=== PATIENT | male | born 1955 | race Caucasian/White ===

== ENCOUNTER 2016-04-13 02:39 | Emergency (ER) | payer OTHER ==
[~2016-04-13] VITALS: Ht 190.5 cm; Wt 61.3 kg
[~2016-04-13 02:39] MED LIST: COUM5TAB PO; ENOX60P SQ; IRON18TA2 PO; PAXI10TA PO; RANI150 PO
[2016-04-13 02:45] VITALS: BP 97/67; PULSE 88; RESP 18; TEMP 99.2; O2SAT 97
[2016-04-13 02:54] VITALS: BP 97/67; PULSE 88; RESP 18; TEMP 99.2; O2SAT 97
[2016-04-13] MEDS ORDERED: WARF-22 PO (02:56)
--- NOTE | 2016-04-13 03:03 | PD ---
HPI Chief Complaint: Cold / Flu Symptoms Time Seen by Provider: 03:36 Travel History International Travel<30 days: No Contact w/Intl Traveler<30days: No Traveled to known affect area: No History of Present Illness HPI 60-year-old male presents to the emergency department by private transportation for 3 days of cough congestion yellow phlegm production anterior chest pain with cough and previous history of pulmonary embolism and is prescribed warfarin. Patient reports fever at home. No report of vomiting or diarrhea abdominal pain or referred pain. PFSH Past Medical History Narrative Medical Pulmonary embolism with Coumadin therapy high cholesterol hypertension COPD tobacco use pacemaker nursing notes reviewed Hx Anticoagulant Therapy: Yes Depression: Yes Heart Rhythm Problems: Yes Cancer: No Cardiac Catheterization: No Cardiovascular Problems: Yes High Cholesterol: Yes Congestive Heart Failure: No COPD: Yes Diabetes: No Diminished Hearing: No Endocrine: No GERD: Yes Genitourinary: No Hypertension: Yes Immune Disorder: No Insomnia: Yes Musculoskeletal: No Neurologic: No Psychiatric: Yes Reproductive: No Respiratory: Yes (HX PE'S) Immunizations Current: No Past Surgical History Cardiac Surgery: Yes (PM) Coronary Artery Bypass Graft: No Pacemaker: Yes Other Surgery: Yes (TESTICULAR CYST) Social History Alcohol Use: Yes (OCC) Tobacco Use: Yes (1PPD) Substance Use: Yes (ETOH AND DRUGS YEARS AGO) Allergies-Medications (Allergen,Severity, Reaction): Coded Allergies: Darvon (Verified Allergy, Severe, DOES NOT REMEMBER, 04/13/16) Reported Meds & Prescriptions Reported Meds & Active Scripts Active Reported Warfarin 10 Mg Tab 15 Mg PO DAILY Review of Systems Except as stated in HPI: all other systems reviewed are Neg General / Constitutional: No: Fever, Chills HENT: Positive: Congestion Cardiovascular: No: Chest Pain or Discomfort Respiratory: Positive: Cough Gastrointestinal: Positive: Nausea, No: Vomiting, Abdominal Pain Genitourinary: No: Flank Pain Musculoskeletal: No: Myalgias, Arthralgias Skin: No Rash Neurologic: No: Weakness Psychiatric: No: Anxiety Hematologic/Lymphatic: No: Lymph Node Enlargement Physical Exam Narrative GENERAL: Well-developed, well-nourished thin male in no acute distress no respiratory distress SKIN: Warm and dry. HEAD: Normocephalic. EYES: No scleral icterus. No injection or drainage. NECK: Supple, trachea midline. No JVD or lymphadenopathy. CARDIOVASCULAR: Regular rate and rhythm without murmurs, gallops, or rubs. RESPIRATORY: Breath sounds equal bilaterally few expiratory wheezes. No accessory muscle use. GASTROINTESTINAL: Abdomen soft, non-tender, nondistended. MUSCULOSKELETAL: No cyanosis, or edema. BACK: Nontender without obvious deformity. No CVA tenderness. Data Data Last Documented VS Vital Signs Date Time Temp Pulse Resp B/P Pulse Ox O2 Delivery O2 Flow Rate FiO2 04/13/16 05:44 98.8 65 18 107/68 97 Room Air Orders Complete Blood Count With Diff (04/13/16 03:03) Basic Metabolic Panel (Bmp) (04/13/16 03:03) B-Type Natriuretic Peptide (04/13/16 03:03) Prothrombin Time / Inr (Pt) (04/13/16 03:03) Magnesium (Mg) (04/13/16 03:03) Troponin I (04/13/16 03:03) Influenzae A/B Antigen (04/13/16 03:03) Iv Access Insert/Monitor (04/13/16 03:03) Electrocardiogram (04/13/16 03:03) Ecg Monitoring (04/13/16 03:03) Oximetry (04/13/16 03:03) Oxygen Administration (04/13/16 03:03) Chest, Single Ap (04/13/16 03:03) Sodium Chloride 0.9% Flush (Ns Flush) (04/13/16 03:15) Lactic Acid (04/13/16 03:03) Sodium Chlor 0.9% 1000 Ml Inj (Ns 1000 M (04/13/16 03:15) D-Dimer (04/13/16 03:20) Ct Pulmonary Angiogram (04/13/16 ) Sodium Chlor 0.9% 1000 Ml Inj (Ns 1000 M (04/13/16 04:15) Iohexol 350 Inj (Omnipaque 350 Inj) (04/13/16 05:03) Ceftriaxone Inj (Rocephin Inj) (04/13/16 05:45) Labs Laboratory Tests Test 04/13/16 03:20 White Blood Count 6.0 TH/MM3 Red Blood Count 4.37 MIL/MM3 Hemoglobin 13.0 GM/DL Hematocrit 39.5 % Mean Corpuscular Volume 90.2 FL Mean Corpuscular Hemoglobin 29.7 PG Mean Corpuscular Hemoglobin 32.9 % Concent Red Cell Distribution Width 13.9 % Platelet Count 276 TH/MM3 Mean Platelet Volume 9.2 FL Neutrophils (%) (Auto) 72.5 % Lymphocytes (%) (Auto) 13.6 % Monocytes (%) (Auto) 10.8 % Eosinophils (%) (Auto) 0.0 % Basophils (%) (Auto) 3.1 % Neutrophils # (Auto) 4.4 TH/MM3 Lymphocytes # (Auto) 0.8 TH/MM3 Monocytes # (Auto) 0.6 TH/MM3 Eosinophils # (Auto) 0.0 TH/MM3 Basophils # (Auto) 0.2 TH/MM3 CBC Comment DIFF FINAL Differential Comment Prothrombin Time 11.1 SEC Prothromb Time International 1.0 RATIO Ratio D-Dimer Quantitative (PE/DVT) 0.62 MG/L FEU Sodium Level 138 MEQ/L Potassium Level 3.7 MEQ/L Chloride Level 102 MEQ/L Carbon Dioxide Level 26.0 MEQ/L Anion Gap 10 MEQ/L Blood Urea Nitrogen 19 MG/DL Creatinine 0.92 MG/DL Estimat Glomerular Filtration 84 ML/MIN Rate Random Glucose 127 MG/DL Lactic Acid Level 1.0 mmol/L Calcium Level 7.8 MG/DL Magnesium Level 2.2 MG/DL Troponin I LESS THAN 0.02 NG/ML B-Type Natriuretic Peptide 19 PG/ML MDM Medical Decision Making Medical Screen Exam Complete: Yes Emergency Medical Condition: Yes Medical Record Reviewed: Yes (04/08/16 stress test with low risk probability) Interpretation(s) EKG atrial paced rhythm rate 65 RSR prime septally no acute ST elevation or injury pattern change noted influenza A ag: positive Troponin is less than 0.02, not elevated BNP is 19, not elevated Lactic acid is 1.0, not elevated; CBC & BMP Diagram 04/13/16 03:20 Last Impressions Chest X-Ray 04/13/16 0303 Signed Impressions: Service Date/Time: Wednesday, April 13, 2016 03:49 - CONCLUSION: Stable chest x-ray. No acute cardiopulmonary abnormality is identified. Matthew Guevara MD Pulmonary angiogram: CONCLUSION: 1. No PE is identified. 2. Stable 3 mm right middle lobe noncalcified pulmonary nodule. This has been present since June 2014. Consider attention to this at followup imaging. 3. Material is present within some of the segmental airways in the lower lobes bilaterally. This is not present no prior chest CT and therefore may represent aspirated material. Suggest followup imaging to confirm resolution. Matthew Guevara MD on April 13, 2016 at 5:22 Board Certified Radiologist. This report was verified electronically. Differential Diagnosis Cough, pleurisy, PE, pneumothorax, ACS, pneumonia, influenza, coagulopathy, anemia Narrative Course IV access obtained specimens collected and sent for resulting imaging studies ordered Patient identified to have a positive influenza A antigen test. Patient also identified to have subtherapeutic INR 1.0 and elevated d-dimer of 0.62. Patient will be sent for CT pulmonary angiogram. Additional IV fluids administered due to patient's blood pressure. Patient informed of lab results. Patient has passed the window of benefit of Tamiflu as symptoms began 3 days ago. Patient is identified to have area congestion on CT well administer Rocephin 1 g IV piggyback in the emergency department. Patient also given bronchodilator. Patient encouraged to have follow-up CT as an outpatient. Patient encouraged to follow-up with his primary care physician call office in a.m. to schedule follow-up appointment. Patient is aware that INR subtherapeutic. Patient has been tapering off his Coumadin in preparation for endoscopy on Saturday however in the interim is can't the procedure and did not resume his Coumadin therapy. Patient given one-time dose of Coumadin in the ED. Diagnosis Primary Impression: Influenza A Additional Impressions: History of pulmonary embolism Subtherapeutic anticoagulation Bronchitis Referrals: Primary Care Physician call for appointment [facility] 1 day Patient Instructions: General Instructions Additional Instructions: Increase fluid hydration take Coumadin as prescribed Monitor temperature every 4 hours with thermometer and take acetaminophen/ Tylenol every 4 as her fever 100.4 days Fahrenheit or greater Complete course of antibiotic as prescribed Use inhaler to help with wheezing shortness of breath or coughing Use cough medicine as prescribed as needed for cough suppression--recommend use at bedtime to help with sleep Follow-up with primary care provider call [facility] to schedule follow-up appointment; also for scheduling follow-up CT Return to the emergency department for any concerns or change in condition Med/Other Pt SpecificInfo: Prescription(s) given Scripts Guaifenesin-Codeine (Codeine/Guaifenesin 100-10 mg/5Ml)1 [place] Sol5-10 Ml PO Q6HR PRN (COUGH) #120 ML Prov:Manasa Jain MD 04/13/16 Cephalexin (Keflex)500 Mg Oqg703 Mg PO Q6H 7 Days Ref 0 Prov:Manasa Jain MD 04/13/16 Albuterol 6.7 GM Inh (Proventil Hfa 6.7 GM Inh)90 Mcg/Act Aer2 Puff INH Q4-6H PRN (SHORTNESS OF BREATH) #1 INHALER Ref 0 Prov:Manasa Jain MD 04/13/16 Disposition: 01 DISCHARGE HOME Condition: Stable Manasa Jain MD Apr 13, 2016 03:03
[2016-04-13 03:09] VITALS: RESP 18; O2SAT 97
[2016-04-13] MEDS ORDERED: SODIUM CHLOR 0.9% 1000 ML INJ 1,000 ML IV ONE ×2 (03:15→04:15)
[2016-04-13] MEDS ORDERED: SODIUM CHLORIDE 0.9% FLUSH 5 ML FLUSH IVF PRN (03:15)
[2016-04-13 03:30] VITALS: BP 101/70; PULSE 65; RESP 18; O2SAT 97
[2016-04-13 03:32] LABS: AUTOMATED NEUTROPHIL # 4.4 TH/MM3 (1.8-7.7); BASOPHIL # 0.2 TH/MM3 (0-0.2); BASOPHIL % 3.1 % (0.0-2.0); HEMATOCRIT 39.5 % (39.0-51.0); HEMO FLAGS DIFF FINAL; LYMPH % 13.6 % (9.0-44.0); LYMPHOCYTE # 0.8 TH/MM3 (1.0-4.8); MEAN CELL VOLUME 90.2 FL (80.0-100.0); MEAN CORPUSCULAR HEMOGLOBIN 29.7 PG (27.0-34.0); MEAN CORPUSCULAR HGB CONC 32.9 % (32.0-36.0); MONO % 10.8 % (0.0-8.0); NEUT % 72.5 % (16.0-70.0); PLATELET COUNT 276 TH/MM3 (150-450); RED BLOOD COUNT 4.37 MIL/MM3 (4.50-5.90); RED CELL DISTRIBUTION WIDTH 13.9 % (11.6-17.2)
[2016-04-13 03:44] LABS: CHLORIDE 102 MEQ/L (98-107); POTASSIUM 3.7 MEQ/L (3.5-5.1); SODIUM (NA) 138 MEQ/L (136-145)
[2016-04-13 03:47] LABS: ANION GAP 10 MEQ/L (5-15); BLOOD UREA NITROGEN 19 MG/DL (7-18); MAGNESIUM 2.2 MG/DL (1.5-2.5); PROTHROMBIN TIME - PATIENT 11.1 SEC (9.8-11.6)
[2016-04-13 03:50] LABS: GLOMERULAR FILTRATION RATE 84 ML/MIN (>89)
[2016-04-13 04:13] VITALS: BP 109/68; PULSE 62; RESP 18; O2SAT 97
--- NOTE | 2016-04-13 04:29 | RADHPO ---
EXAM DATE/TIME: 04/13/2016 03:49 [facility] COMPARISON: CHEST SINGLE AP, October 19, 2014, 10:00. INDICATIONS : Patient states fever and cough. MEDICAL HISTORY : None. SURGICAL HISTORY : Pacemaker. ENCOUNTER: Initial ACUITY: 3 days PAIN SCORE: 3/10 LOCATION: Bilateral chest FINDINGS: Portable AP views of the chest demonstrate a normal-sized cardiac silhouette. Left chest wall cardiac pacing device remains present. EKG lines overlie the patient. No effusion, consolidation, or pneumot horax is visualized. The bones and soft tissues demonstrate no acute finding. CONCLUSION: Stable chest x-ray. No acute cardiopulmonary abnormality is identified. Matthew Guevara MD on April 13, 2016 at 4:27 Board Certified Radiologist. This report was verified electronically.
[2016-04-13] MEDS ORDERED: IOHEXOL 350 MG/ML 10 ML VIAL (for RAD DIAG) IV ONE (05:03)
--- NOTE | 2016-04-13 05:31 | RADHPO ---
EXAM DATE/TIME: 04/13/2016 04:39 [facility] COMPARISON: CT ABDOMEN & PELVIS W CONTRAST, August 06, 2014, 18:35. CT PULMONARY ANGIOGRAM, April 07, 2015, 11:35 . INDICATIONS : Chest congestion, pain and cough for three days. IV CONTRAST: 75 cc Omnipaque 350 (iohexol) IV RADIATION DOSE: 6.31 CTDIvol (mGy) MEDICAL HISTORY : Chronic obstructive pulmonary disease. Hypertension. SURGICAL HISTORY : Pacemaker. ENCOUNTER: Initial ACUITY: 3 days PAIN SCALE: 3/10 LOCATION: Bilateral chest TECHNIQUE: Volumetric scanning of the chest was performed using a pulmonary embolism protocol MIP images were re constructed. Using automated exposure control and adjustment of the mA and/or kV according to patien t size, radiation dose was kept as low as reasonably achievable to obtain optimal diagnostic quality images. FINDINGS: PULMONARY ARTERIES: No filling defects are seen in the pulmonary arteries through the segmental level. LUNGS: There is no consolidation or pneumothorax . The right middle lobe abutting the major fissure there is a 3 mm noncalcified pulmonary nodule. Material is present in one of the right lower lobe segmental a irways and some material is also present within the left lower lobe segmental airways. PLEURAE: There is no pleural thickening or pleural effusion. MEDIASTINUM: There is good visualization of the great vessels of the middle mediastinum. No evidence of mediastin al or hilar adenopathy/mass. There is reflux of contrast into the IVC and azygos system. MUSCULOSKELETAL: No acute abnormality is seen. MISCELLANEOUS: The visualized upper abdominal organs demonstrate no acute abnormality. CONCLUSION: 1. No PE is identified. 2. Stable 3 mm right middle lobe noncalcified pulmonary nodule. This has been present since June 5. Consider attention to this at followup imaging. 3. Material is present within some of the segmental airways in the lower lobes bilaterally. This is n ot present no prior chest CT and therefore may represent aspirated material. Suggest followup imaging to confirm resolution. Matthew Guevara MD on April 13, 2016 at 5:22 Board Certified Radiologist. This report was verified electronically.
[2016-04-13 05:44] VITALS: BP 107/68; PULSE 65; RESP 18; TEMP 98.8; O2SAT 97
[2016-04-13] MEDS ORDERED: cefTRIAXone INJ 1,000 MG in SODIUM CHLORIDE 0.9% INJ 100 ML IV ONE (05:45)
[2016-04-13] MEDS ORDERED: CEPH-460 PO (05:49)
[2016-04-13] MEDS ORDERED: GUAI1SOL3 PO (05:49)
[2016-04-13] MEDS ORDERED: ALBU6.7H INH (05:49)
--- NOTE | 2016-04-13 13:28 | EKG ---
Date Performed: 04/13/2016 Time Performed: 03:11:24 PTAGE: 60 years EKG: Demand atrial pacing rSr'(V1) - probable normal variant Septal T wave changes are nonspecif ic Since previous tracing, no significant change noted Abnormal ECG PREVIOUS TRACING : 04/07/2015 22.21.02 DOCTOR: Ela Stephens Interpretating Date/Time 04/13/2016 13:27:31
== END 2016-04-13 06:12 | disposition home or self-care (01) ==
LOC: PHED 02:39
DX: J09.X2 Influenza due to identified novel influenza A virus with other respiratory manifestations (principal); R07.9 Chest pain, unspecified; R05 Cough; R50.9 Fever, unspecified; R79.1 Abnormal coagulation profile; R94.31 Abnormal electrocardiogram [ECG] [EKG]; J44.9 Chronic obstructive pulmonary disease, unspecified; E78.00 Pure hypercholesterolemia, unspecified; I10 Essential (primary) hypertension; K21.9 Gastro-esophageal reflux disease without esophagitis; F17.210 Nicotine dependence, cigarettes, uncomplicated; Z86.711 Personal history of pulmonary embolism; Z79.01 Long term (current) use of anticoagulants; Z95.0 Presence of cardiac pacemaker
CPT/HCPCS: 71010; 71275; 80048; 83605; 83735; 83880; 84484; 85025; 85379; 85610; 87804; 93005; 96361; 96365; 99284; J0696; J7030; Q9967

== ENCOUNTER 2017-02-01 13:00 | Emergency (ER) | payer OTHER ==
[~2017-02-01] VITALS: Ht 190.5 cm; Wt 60.0 kg
[~2017-02-01 13:00] MED LIST changes: +ALBU6.7H INH; +CEPH-460 PO; -COUM5TAB PO; -ENOX60P SQ; +GUAI1SOL3 PO; -IRON18TA2 PO; -PAXI10TA PO; -RANI150 PO; +WARF-22 PO
[2017-02-01 13:04] VITALS: BP 119/87; PULSE 61; RESP 16; TEMP 97.4; O2SAT 98
[2017-02-01 13:10] VITALS: BP_SYST 117; BP_SYST 118; BP_DIAS 68; BP_DIAS 70
[2017-02-01 13:12] VITALS: RESP 16; O2SAT 97
[2017-02-01] MEDS ORDERED: SODIUM CHLORIDE 0.9% FLUSH 10 ML FLUSH IVF PRN (13:30)
--- NOTE | 2017-02-01 13:36 | RADRPT ---
EXAM DATE/TIME: 02/01/2017 13:19 CORRECTION Corrected on: February 07, 2017; fixed date and time [facility] COMPARISON: CHEST SINGLE AP, April 13, 2016, 3:49. INDICATIONS : Short of breath MEDICAL HISTORY : Chronic obstructive pulmonary disease. Hypertension SURGICAL HISTORY : Pacemaker. ENCOUNTER: Initial ACUITY: 4 - 6 days PAIN SCORE: 0/10 LOCATION: chest FINDINGS: Lungs are hyperexpanded. There is a 1.3 cm focal opacity in the inferior right lower lung zone which may reflect confluence of shadows. Dual lead pacemaker in stable position. Cardiomediastinal contours are within normal limits. The remainder of the exam is unchanged. CONCLUSION: 1. Changes of obstructive pulmonary disease with 1.3 cm focal opacity in the inferior right lower joel g zone which may reflect confluence of shadows although a pulmonary nodule cannot be excluded. This c an be further evaluated on already requested pulmonary CT exam. Micheal Weaver MD on February 01, 2017 at 13:32 Board Certified Radiologist. Board Certified Radiologist. This report was verified electronically.
[2017-02-01 13:39] LABS: AUTOMATED NEUTROPHIL # 2.5 TH/MM3 (1.8-7.7); BASOPHIL % 0.9 % (0.0-2.0); EOSINOPHIL # 0.4 TH/MM3 (0-0.4); EOSINOPHIL % 8.2 % (0.0-4.0); HEMATOCRIT 45.3 % (39.0-51.0); HEMO FLAGS DIFF FINAL; LYMPH % 30.2 % (9.0-44.0); LYMPHOCYTE # 1.5 TH/MM3 (1.0-4.8); MEAN CELL VOLUME 92.6 FL (80.0-100.0); MEAN CORPUSCULAR HEMOGLOBIN 30.1 PG (27.0-34.0); MEAN CORPUSCULAR HGB CONC 32.5 % (32.0-36.0); MONO % 8.5 % (0.0-8.0); NEUT % 52.2 % (16.0-70.0); PLATELET COUNT 275 TH/MM3 (150-450); RED BLOOD COUNT 4.89 MIL/MM3 (4.50-5.90); RED CELL DISTRIBUTION WIDTH 13.2 % (11.6-17.2); WHITE BLOOD COUNT 4.9 TH/MM3 (4.0-11.0)
--- NOTE | 2017-02-01 13:44 | PD ---
HPI Chief Complaint: Chest Pain Time Seen by Provider: 13:07 Travel History International Travel<30 days: No Contact w/Intl Traveler<30days: No Traveled to known affect area: No History of Present Illness HPI This is a 61-year-old male who reports that he's been feeling very weak over the past 3 weeks, constant, severe, with poor exertional tolerance. He denies any shortness of breath or chest pain and denies any fevers or chills. He has had some cough and rhinorrhea. He has a difficult time describing his symptoms but he says he just doesn't feel himself. PFSH Past Medical History Hx Anticoagulant Therapy: Yes Depression: Yes Heart Rhythm Problems: Yes Cancer: No Cardiac Catheterization: No Cardiovascular Problems: Yes High Cholesterol: Yes Chemotherapy: No Congestive Heart Failure: No COPD: Yes Cerebrovascular Accident: No Diabetes: No Diminished Hearing: No Endocrine: No Gastrointestinal Disorders: Yes GERD: Yes Genitourinary: No Heparin Induced Thrombocytopen: No Hypertension: Yes Immune Disorder: No Implanted Vascular Access Dvce: Yes Insomnia: Yes Musculoskeletal: No Neurologic: No Psychiatric: Yes Reproductive: No Respiratory: No Immunizations Current: No Tetanus Vaccination: Unknown Influenza Vaccination: No Past Surgical History Cardiac Surgery: Yes (PACEMAKER) Coronary Artery Bypass Graft: No Hysterectomy: No Pacemaker: Yes Other Surgery: Yes (TESTICULAR CYST) Social History Alcohol Use: Yes (3-4 BEERS DAILY) Tobacco Use: Yes (1PPD) Substance Use: Yes (ETOH AND DRUGS YEARS AGO) Allergies-Medications (Allergen,Severity, Reaction): Coded Allergies: propoxyphene (Unverified Allergy, Severe, DOES NOT REMEMBER, 02/01/17) Reported Meds & Prescriptions Reported Meds & Active Scripts Active Reported Warfarin 10 Mg Tab 15 Mg PO DAILY Review of Systems Except as stated in HPI: all other systems reviewed are Neg Physical Exam Narrative GENERAL: Cachectic appearing SKIN: Focused skin assessment warm and dry. HEAD: Atraumatic. Normocephalic. EYES: Pupils equal and round. No injection or drainage. ENT: Moist mucous membranes NECK: Trachea midline. CARDIOVASCULAR: Regular rate and rhythm. No murmur appreciated. RESPIRATORY: Clear to auscultation. Breath sounds equal bilaterally. GASTROINTESTINAL: Abdomen soft, non-tender, nondistended. MUSCULOSKELETAL: No obvious deformities. NEUROLOGICAL: Awake and alert. No obvious cranial nerve deficits. Moving all extremities. PSYCHIATRIC: Appropriate mood and affect; insight and judgment normal. Data Data Last Documented VS Vital Signs Date Time Temp Pulse Resp B/P (MAP) Pulse Ox O2 Delivery O2 Flow Rate FiO2 02/01/17 14:57 62 16 116/69 (85) 98 Room Air 02/01/17 13:04 97.4 Orders Orders Electrocardiogram (02/01/17 13:18) Complete Blood Count With Diff (02/01/17 13:18) Comprehensive Metabolic Panel (02/01/17 13:18) Magnesium (Mg) (02/01/17 13:18) Prothrombin Time / Inr (Pt) (02/01/17 13:18) Act Partial Throm Time (Ptt) (02/01/17 13:18) Troponin I (02/01/17 13:18) Chest, Single Ap (02/01/17 13:18) Ecg Monitoring (02/01/17 13:18) Bilateral Bp Monitoring (02/01/17 13:18) Iv Access Insert/Monitor (02/01/17 13:18) Oximetry (02/01/17 13:18) Oxygen Administration (02/01/17 13:18) Sodium Chloride 0.9% Flush (Ns Flush) (02/01/17 13:30) Ct Pulmonary Angiogram (02/01/17 13:18) Ct Abd/Pel W Iv Contrast(Rout) (02/01/17 ) Iohexol 350 Inj (Omnipaque 350 Inj) (02/01/17 14:18) Troponin I (02/01/17 15:30) Labs Laboratory Tests Test 02/01/17 13:30 02/01/17 15:45 White Blood Count 4.9 TH/MM3 Red Blood Count 4.89 MIL/MM3 Hemoglobin 14.7 GM/DL Hematocrit 45.3 % Mean Corpuscular Volume 92.6 FL Mean Corpuscular Hemoglobin 30.1 PG Mean Corpuscular Hemoglobin Concent 32.5 % Red Cell Distribution Width 13.2 % Platelet Count 275 TH/MM3 Mean Platelet Volume 10.2 FL Neutrophils (%) (Auto) 52.2 % Lymphocytes (%) (Auto) 30.2 % Monocytes (%) (Auto) 8.5 % Eosinophils (%) (Auto) 8.2 % Basophils (%) (Auto) 0.9 % Neutrophils # (Auto) 2.5 TH/MM3 Lymphocytes # (Auto) 1.5 TH/MM3 Monocytes # (Auto) 0.4 TH/MM3 Eosinophils # (Auto) 0.4 TH/MM3 Basophils # (Auto) 0.0 TH/MM3 CBC Comment DIFF FINAL Differential Comment Prothrombin Time 10.7 SEC Prothromb Time International Ratio 1.0 RATIO Activated Partial Thromboplast Time 27.0 SEC Blood Urea Nitrogen 19 MG/DL Creatinine 1.10 MG/DL Random Glucose 125 MG/DL Total Protein 7.9 GM/DL Albumin 4.1 GM/DL Calcium Level 8.7 MG/DL Magnesium Level 2.3 MG/DL Alkaline Phosphatase 67 U/L Aspartate Amino Transf (AST/SGOT) 16 U/L Alanine Aminotransferase (ALT/SGPT) 21 U/L Total Bilirubin 0.5 MG/DL Sodium Level 138 MEQ/L Potassium Level 3.9 MEQ/L Chloride Level 102 MEQ/L Carbon Dioxide Level 31.0 MEQ/L Anion Gap 5 MEQ/L Estimat Glomerular Filtration Rate 68 ML/MIN Troponin I LESS THAN 0.02 NG/ML LESS THAN 0.02 NG/ML MDM Medical Decision Making Medical Screen Exam Complete: Yes Emergency Medical Condition: Yes Interpretation(s) No leukocytosis Electrolytes are reassuring Last 24 hours Impressions Chest X-Ray 02/01/178 Signed Impressions: Service Date/Time: Thursday, February 02, 2017 01:24 - CONCLUSION: 1. Changes of obstructive pulmonary disease with 1.3 cm focal opacity in the inferior right lower lung zone which may reflect confluence of shadows although a pulmonary nodule cannot be excluded. This can be further evaluated on already requested pulmonary CT exam. Micheal Weaver MD CT Angiography 02/01/178 Signed Impressions: Service Date/Time: Wednesday, February 01, 2017 14:02 - CONCLUSION: Again scarring in the right hilum with marked decreased size of the right upper lobe pulmonary artery. I do not believe it is a pulmonary embolism and it is stable since April 2016. Alexander Parisi MD Abdomen/Pelvis CT 02/01/17 0000 Signed Impressions: Service Date/Time: Wednesday, February 01, 2017 14:02 - CONCLUSION: Stable exam since 2014. No etiology for abdominal pain is identified. Alexander Parisi MD Differential Diagnosis Pulmonary embolism, malignancy, pleural effusion Narrative Course This is a 61-year-old male who presents to the emergency department reporting generalized weakness and malaise with some chest discomfort. He is a poor historian. He is very thin on exam with a BMI of 16. He was placed on a monitor and an obviously was established. Labs are obtained which are all reassuring. He has a history of pulmonary embolisms so CT pulmonary angiogram was obtained which was negative. CT abdomen and pelvis was also obtained given the patient's appearance for concern for underlying malignancy which was normal. I think patient requires close follow-up with a primary care physician is I suspect his condition is acute on chronic. Patient will be discharged home. Troponin was repeated and was negative. His chest pain is very atypical and does not seem to be his chief complaint. He had a stress test in March of last year which was normal. Diagnosis Primary Impression: Weakness Patient Instructions: General Instructions Additional Instructions: If you develop severe chest pain, shortness of breath, sweating, lightheadedness , dizziness or difficulty breathing return to the emergency department immediately. Followup with your primary care physician in 2-3 days if your symptoms are not resolved. Med/Other Pt SpecificInfo: No Change to Meds Disposition: 01 DISCHARGE HOME Condition: Stable Lilo Jain MD Feb 01, 2017 13:44
[2017-02-01 13:46] LABS: CHLORIDE 102 MEQ/L (98-107); POTASSIUM 3.9 MEQ/L (3.5-5.1); SODIUM (NA) 138 MEQ/L (136-145)
[2017-02-01 13:50] LABS: ANION GAP 5 MEQ/L (5-15); BLOOD UREA NITROGEN 19 MG/DL (7-18); MAGNESIUM 2.3 MG/DL (1.5-2.5)
[2017-02-01 13:53] LABS: ALT (GPT) 21 U/L (12-78); AST (GOT) 16 U/L (15-37); GLOMERULAR FILTRATION RATE 68 ML/MIN (>89)
[2017-02-01 13:54] LABS: TOTAL BILIRUBIN ADULT 0.5 MG/DL (0.2-1.0)
[2017-02-01 13:56] LABS: ALKALINE PHOSPHATASE 67 U/L (45-117)
[2017-02-01] MEDS ORDERED: IOHEXOL 350 MG/ML 10 ML VIAL (for RAD DIAG) IVCONTRAST ONE (14:18)
[2017-02-01 14:22] LABS: PROTHROMBIN TIME - PATIENT 10.7 SEC (9.8-11.6)
--- NOTE | 2017-02-01 14:38 | RADRPT ---
EXAM DATE/TIME: 02/01/2017 14:02 [facility] COMPARISON: CT ABDOMEN & PELVIS W CONTRAST, August 06, 2014, 18:35. INDICATIONS : General weakness x 3 weeks, evaluate for tumor. IV CONTRAST: 85 cc Omnipaque 350 (iohexol) IV ; Cumulative dose for multiple exams. ORAL CONTRAST: No oral contrast ingested. RADIATION DOSE: 7.00 CTDIvol (mGy) MEDICAL HISTORY : Chronic obstructive pulmonary disease. Cardiovascular disease Gastroesophageal reflux disease.Hyperte nsion. SURGICAL HISTORY : Pacemaker. ENCOUNTER: Initial ACUITY: 3 weeks PAIN SCALE: 0/10 LOCATION: Abdomen. TECHNIQUE: Volumetric scanning of the abdomen and pelvis was performed. Using automated exposure control and ad justment of the mA and/or kV according to patient size, radiation dose was kept as low as reasonably achievable to obtain optimal diagnostic quality images. DICOM format image data is available electro nically for review and comparison. FINDINGS: LOWER LUNGS: The visualized lower lungs are clear. LIVER: Homogeneous density without lesion. There is no dilation of the biliary tree. No calcified gallston es. SPLEEN: Normal size without lesion. PANCREAS: Within normal limits. KIDNEYS: Normal in size and shape. There is no mass, stone or hydronephrosis other than small cyst upper pole right kidney. Prominent renal veins on the left side unchanged. ADRENAL GLANDS: Within normal limits. VASCULAR: There is no aortic aneurysm. BOWEL/MESENTERY: The stomach, small bowel, and colon demonstrate no acute abnormality. There is no free intraperitone al air or fluid. ABDOMINAL WALL: Within normal limits. RETROPERITONEUM: There is no lymphadenopathy. IVC remains markedly enlarged BLADDER: No wall thickening or mass. REPRODUCTIVE: Within normal limits. INGUINAL: There is no lymphadenopathy or hernia. MUSCULOSKELETAL: Within normal limits for patient age. CONCLUSION: Stable exam since 2014. No etiology for abdominal pain is identified. Alexander Parisi MD on February 01, 2017 at 14:35 Board Certified Radiologist. This report was verified electronically.
--- NOTE | 2017-02-01 14:48 | RADRPT ---
EXAM DATE/TIME: 02/01/2017 14:02 [facility] COMPARISON: Prior study April 2016. INDICATIONS : Chest pain. IV CONTRAST: 85 cc Omnipaque 350 (iohexol) IV ; Cumulative dose for multiple exams. RADIATION DOSE: 6.27 CTDIvol (mGy) MEDICAL HISTORY : Cardiovascular disease. Chronic obstructive pulmonary disease. Gastroesophageal reflux disease. Hyper tension. SURGICAL HISTORY : Pacemaker. ENCOUNTER: Initial ACUITY: 3 weeks PAIN SCALE: 1/10 LOCATION: Chest TECHNIQUE: Volumetric scanning of the chest was performed using a pulmonary embolism protocol MIP images were re constructed. Using automated exposure control and adjustment of the mA and/or kV according to patien t size, radiation dose was kept as low as reasonably achievable to obtain optimal diagnostic quality images. DICOM format image data is available electronically for review and comparison. Follow-up recommendations for detected pulmonary nodules are based at a minimum on nodule size and pa tient risk factors according to Fleischner Society Guidelines. FINDINGS: CT of the chest was performed. Similar to April 2016 the right upper lobe pulmonary artery is quit e small with some scarring in the right hilum. It is stable from the previous study. No new mass is identified. The left pulmonary artery is unremarkable. There is excellent opacification of the low er pulmonary arteries without evidence of pulmonary embolism. There is a tiny cavity in the right up per lobe measuring 4 mm. No infiltrate or mass is identified. There was some soft tissue obstructio n in the right lower lobe bronchus which has cleared since April. CONCLUSION: Again scarring in the right hilum with marked decreased size of the right upper lobe pulmonary artery . I do not believe it is a pulmonary embolism and it is stable since April 2016. Alexander Parisi MD on February 01, 2017 at 14:27 Board Certified Radiologist. This report was verified electronically.
[2017-02-01 14:57] VITALS: BP 116/69; PULSE 62; RESP 16; O2SAT 98
[2017-02-01 16:30] VITALS: BP 122/81; PULSE 60; RESP 16; O2SAT 93
--- NOTE | 2017-02-02 17:57 | EKG ---
Date Performed: 02/01/2017 Time Performed: 13:05:15 PTAGE: 61 years EKG: ELECTRONIC ATRIAL PACEMAKER, OCCASIONAL VENTRICULAR PACEMAKER POSSIBLE RIGHT VENTRICULAR CO NDUCTION DELAY VOLTAGE CRITERIA FOR LVH ABNORMAL ECG INTERPRETATION BASED ON A DEFAULT AGE OF 39 YEAR S Compared to the PREVIOUS TRACING from 04/13/16, now atrial paced DOCTOR: Madi Cassidy Interpretating Date/Time 02/02/2017 17:55:46
== END 2017-02-01 16:34 | disposition home or self-care (01) ==
LOC: PHED 13:00
DX: R53.1 Weakness (principal); F17.200 Nicotine dependence, unspecified, uncomplicated; R94.31 Abnormal electrocardiogram [ECG] [EKG]
CPT/HCPCS: 71010; 71275; 74177; 80053; 83735; 84484; 85025; 85610; 85730; 93005; 99285; Q9967

== ENCOUNTER 2017-02-22 11:22 | Emergency (ER) | payer OTHER ==
[~2017-02-22] VITALS: Ht 190.5 cm; Wt 57.4 kg
[~2017-02-22 11:22] MED LIST changes: -ALBU6.7H INH; -CEPH-460 PO; -GUAI1SOL3 PO
[2017-02-22 11:50] VITALS: BP 103/60; PULSE 62; RESP 18; TEMP 97.4; O2SAT 99
--- NOTE | 2017-02-22 12:42 | PD ---
HPI Chief Complaint: General Weakness Time Seen by Provider: 12:17 Travel History International Travel<30 days: No Contact w/Intl Traveler<30days: No Traveled to known affect area: No History of Present Illness HPI 61yo M with PMH of PE, bradycardia s/p pacemaker placement presents to the ED with c/o generalized weakness for 1 month. States he has no energy and he is sleeping a lot. States he lives by himself and his family is in [place]. Upon review of system, said he has been having a little chest pain and sob for a few weeks. Pt was seen here on 02/01/17 for similar complaints and was suppose to follow up for colonoscopy but said he has not followed up. Also had black stool 2 days ago. [facility] Denies any fever, n/v, abdominal pain, focal weakness or numbness. PFSH Past Medical History Hx Anticoagulant Therapy: Yes Depression: Yes Heart Rhythm Problems: Yes Cancer: No Cardiac Catheterization: No Cardiovascular Problems: Yes High Cholesterol: Yes Chemotherapy: No Congestive Heart Failure: No COPD: Yes Cerebrovascular Accident: No Diabetes: No Diminished Hearing: No Endocrine: No Gastrointestinal Disorders: Yes GERD: Yes Genitourinary: No Heparin Induced Thrombocytopen: No Hypertension: Yes Immune Disorder: No Implanted Vascular Access Dvce: Yes Insomnia: Yes Musculoskeletal: No Neurologic: No Psychiatric: Yes Reproductive: No Respiratory: No Immunizations Current: No Tetanus Vaccination: < 5 Years Past Surgical History Cardiac Surgery: Yes (PACEMAKER) Coronary Artery Bypass Graft: No Hysterectomy: No Pacemaker: Yes Other Surgery: Yes (TESTICULAR CYST) Family History Family Myocardial Infarction: No Social History Alcohol Use: Yes (3-4 BEERS DAILY) Tobacco Use: Yes (1PPD) Substance Use: Yes (ETOH AND DRUGS YEARS AGO) Allergies-Medications (Allergen,Severity, Reaction): Coded Allergies: propoxyphene (Unverified Allergy, Severe, DOES NOT REMEMBER, 02/22/17) Reported Meds & Prescriptions Reported Meds & Active Scripts Active Reported Warfarin 10 Mg Tab 15 Mg PO DAILY Review of Systems Except as stated in HPI: all other systems reviewed are Neg Physical Exam Narrative GENERAL: 61yo cachetic appearing. SKIN: Focused skin assessment warm/dry. HEAD: Atraumatic. Normocephalic. EYES: Pupils equal and round. No scleral icterus. No injection or drainage. ENT: No nasal bleeding or discharge. Mucous membranes pink and moist. NECK: Trachea midline. No JVD. CARDIOVASCULAR: Regular rate and rhythm. No murmur appreciated. RESPIRATORY: No accessory muscle use. Clear to auscultation. Breath sounds equal bilaterally. GASTROINTESTINAL: Abdomen soft, non-tender, nondistended. Hepatic and splenic margins not palpable. RECTAL: No blood. Brown stool. Hemaprompt negative. MUSCULOSKELETAL: No obvious deformities. No clubbing. No cyanosis. No edema. NEUROLOGICAL: Awake and alert. No obvious cranial nerve deficits. Motor grossly within normal limits. Normal speech. PSYCHIATRIC: Appropriate mood and affect; insight and judgment normal. Data Data Last Documented VS Vital Signs Date Time Temp Pulse Resp B/P (MAP) Pulse Ox O2 Delivery O2 Flow Rate FiO2 02/22/17:17 02/22/17 14:28 62 18 97 Room Air 02/22/17 11:50 97.4 Orders Orders Electrocardiogram (02/22/17 ) Complete Blood Count With Diff (02/22/17 12:36) Comprehensive Metabolic Panel (02/22/17 12:36) Prothrombin Time / Inr (Pt) (02/22/17 12:36) Act Partial Throm Time (Ptt) (02/22/17 12:36) Troponin I (02/22/17 12:36) Urinalysis - C+S If Indicated (02/22/17 12:36) Thyroid Stimulating Hormone (02/22/17 12:36) Chest, Single Ap (02/22/17 ) Sodium Chlor 0.9% 1000 Ml Inj (Ns 1000 M (02/22/17 14:15) Ed Discharge Order (02/22/17 15:14) Labs Laboratory Tests Test 02/22/17 12:42 02/22/17 14:22 White Blood Count 3.2 TH/MM3 Red Blood Count 4.39 MIL/MM3 Hemoglobin 13.4 GM/DL Hematocrit 40.5 % Mean Corpuscular Volume 92.3 FL Mean Corpuscular Hemoglobin 30.6 PG Mean Corpuscular Hemoglobin Concent 33.1 % Red Cell Distribution Width 13.3 % Platelet Count 254 TH/MM3 Mean Platelet Volume 9.6 FL Neutrophils (%) (Auto) 55.0 % Lymphocytes (%) (Auto) 34.0 % Monocytes (%) (Auto) 7.4 % Eosinophils (%) (Auto) 1.2 % Basophils (%) (Auto) 2.4 % Neutrophils # (Auto) 1.8 TH/MM3 Lymphocytes # (Auto) 1.1 TH/MM3 Monocytes # (Auto) 0.2 TH/MM3 Eosinophils # (Auto) 0.0 TH/MM3 Basophils # (Auto) 0.1 TH/MM3 CBC Comment DIFF FINAL Differential Comment Prothrombin Time 10.4 SEC Prothromb Time International Ratio 1.0 RATIO Activated Partial Thromboplast Time 25.4 SEC Blood Urea Nitrogen 28 MG/DL Creatinine 1.10 MG/DL Random Glucose 75 MG/DL Total Protein 7.0 GM/DL Albumin 3.5 GM/DL Calcium Level 8.2 MG/DL Alkaline Phosphatase 63 U/L Aspartate Amino Transf (AST/SGOT) 16 U/L Alanine Aminotransferase (ALT/SGPT) 19 U/L Total Bilirubin 0.3 MG/DL Sodium Level 138 MEQ/L Potassium Level 3.8 MEQ/L Chloride Level 102 MEQ/L Carbon Dioxide Level 29.7 MEQ/L Anion Gap 6 MEQ/L Estimat Glomerular Filtration Rate 68 ML/MIN Troponin I LESS THAN 0.02 NG/ML Thyroid Stimulating Hormone 3rd Gen 1.060 uIU/ML Urine Color YELLOW Urine Turbidity CLEAR Urine pH 6.0 Urine Specific Berkley 1.022 Urine Protein TRACE mg/dL Urine Glucose (UA) NEG mg/dL Urine Ketones NEG mg/dL Urine Occult Blood TRACE Urine Nitrite NEG Urine Bilirubin NEG Urine Leukocyte Esterase NEG Urine RBC 0-3 /hpf Urine Squamous Epithelial Cells 0-5 /hpf Urine Bacteria RARE /hpf Microscopic Urinalysis Comment CULT NOT INDICATED MDM Medical Decision Making Medical Screen Exam Complete: Yes Emergency Medical Condition: Yes Interpretation(s) EKG: atrial paced. Normal axis. No ST segment elevation or depression. Differential Diagnosis Dehydration vs. electrolyte abnormality vs. failure to thrive vs. malignancy vs. atypical chest pain Narrative Course 61yo M with multiple vague complaints. When asked if wants a higher level of care, he said he does not. I asked the social media manager to be involved and she spoke to his children and they said he does not want to join them in [place]. Pt said he can take care of himself and can ambulate. He is very thin and may have colon CA but needs to follow up with GI as outpatient. Hemaprompt negative here. Labs reviewed, H/H normal. BUN mildly elevated at 28, pt given NS IVF. Troponin negative, chest pain is atypical. TSH normal. UA negative. CXR unremarkable. Pt wants to go home. Instructed him to follow up with GI as outpatient and return to the ED if symptoms worsen. [facility] Point of Care Internal Pos. & Neg. Controls: Passed Fecal Specimen Occult Blood: Negative Diagnosis Primary Impression: Dehydration Referrals: Phil Encarnacion MD call for appointment Patient Instructions: General Instructions Departure Forms: Tests/Procedures Additional Instructions: Please follow up with GI for colonoscopy. Please follow up with your primary care physician in 2-3 days. Return to the ED if symptoms worsen. Med/Other Pt SpecificInfo: No Change to Meds Disposition: 01 DISCHARGE HOME Condition: Stable Inna Vasquez DO Feb 22, 2017 12:41
[2017-02-22 12:48] LABS: AUTOMATED NEUTROPHIL # 1.8 TH/MM3 (1.8-7.7); BASOPHIL # 0.1 TH/MM3 (0-0.2); BASOPHIL % 2.4 % (0.0-2.0); EOSINOPHIL % 1.2 % (0.0-4.0); HEMATOCRIT 40.5 % (39.0-51.0); HEMOGLOBIN 13.4 GM/DL (13.0-17.0); LYMPHOCYTE # 1.1 TH/MM3 (1.0-4.8); MEAN CELL VOLUME 92.3 FL (80.0-100.0); MEAN CORPUSCULAR HEMOGLOBIN 30.6 PG (27.0-34.0); MEAN CORPUSCULAR HGB CONC 33.1 % (32.0-36.0); MEAN PLATELET VOLUME 9.6 FL (7.0-11.0); MONO % 7.4 % (0.0-8.0); MONOCYTE # 0.2 TH/MM3 (0-0.9); PLATELET COUNT 254 TH/MM3 (150-450); RED BLOOD COUNT 4.39 MIL/MM3 (4.50-5.90); RED CELL DISTRIBUTION WIDTH 13.3 % (11.6-17.2); WHITE BLOOD COUNT 3.2 TH/MM3 (4.0-11.0)
[2017-02-22 13:04] LABS: PROTHROMBIN TIME - PATIENT 10.4 SEC (9.8-11.6)
[2017-02-22 13:06] LABS: CHLORIDE 102 MEQ/L (98-107); SODIUM (NA) 138 MEQ/L (136-145)
[2017-02-22 13:09] LABS: CALCIUM 8.2 MG/DL (8.5-10.1)
[2017-02-22 13:10] LABS: ALBUMIN 3.5 GM/DL (3.4-5.0); BICARBONATE 29.7 MEQ/L (21.0-32.0); BLOOD UREA NITROGEN 28 MG/DL (7-18); GLUCOSE,RANDOM 75 MG/DL (74-106)
[2017-02-22 13:13] LABS: ALT (GPT) 19 U/L (12-78); AST (GOT) 16 U/L (15-37); GLOMERULAR FILTRATION RATE 68 ML/MIN (>89)
[2017-02-22 13:15] LABS: TOTAL BILIRUBIN ADULT 0.3 MG/DL (0.2-1.0)
[2017-02-22 13:16] LABS: ALKALINE PHOSPHATASE 63 U/L (45-117)
[2017-02-22 13:18] LABS: TROPONIN I LESS THAN 0.02 NG/ML (0.02-0.05)
--- NOTE | 2017-02-22 13:40 | RADRPT ---
EXAM DATE/TIME: 02/22/2017 13:18 [facility] COMPARISON: CHEST SINGLE AP, February 01, 2017, 13:19. INDICATIONS : Weakness, fatigue, chest pain x 1 month. Was seen here 02/01/2017. MEDICAL HISTORY : Hypercholesterolemia. Gastroesophageal reflux disease. Chronic obstructive pulmonary disease. Hyp ertension. Smoker. SURGICAL HISTORY : Pacemaker. Testicular cyst removed. ENCOUNTER: Initial ACUITY: 1 month PAIN SCORE: 5/10 LOCATION: chest FINDINGS: The exam demonstrates advanced COPD. The heart is normal in size. The mediastinal contour is within n ormal limits. The lungs are otherwise clear. There is a transvenous pacer in good position. The osseo us structures are intact. CONCLUSION: 1. COPD changes. The exam is similar to a previous dated 02/01/17. Doug Cheung MD on February 22, 2017 at 13:38 Board Certified Radiologist. This report was verified electronically.
[2017-02-22] MEDS ORDERED: SODIUM CHLOR 0.9% 1000 ML INJ 1,000 ML IV ONE (14:15)
[2017-02-22 14:28] VITALS: BP 119/72; PULSE 62; RESP 18; O2SAT 97
[2017-02-22 14:29] LABS: BILIRUBIN, URINE NEG (NEG); GLUCOSE,URINE NEG (NEG); KETONE, URINE NEG (NEG); NITRITE,URINE NEG (NEG); URINE LEUKOCYTE ESTERASE NEG (NEG)
[2017-02-22 14:33] LABS: BLOOD, URINE TRACE (NEG)
[2017-02-22 14:36] LABS: URINE COLOR YELLOW (YELLW/STRAW)
[2017-02-22 14:38] LABS: BACTERIA, URINE RARE /hpf; RBC, URINE 0-3 /hpf (0-3); SQUAMOUS EPITHELIAL CELL URINE 0-5 /hpf (0-5)
--- NOTE | 2017-02-22 17:29 | EKG ---
Date Performed: 02/22/2017 Time Performed: 12:47:05 PTAGE: 61 years EKG: ELECTRONIC ATRIAL PACEMAKER ABNORMAL RHYTHM ECG PREVIOUS TRACING : 02/01/2017 13.05 Compared to previous tracing, PVCs are no longer present. DOCTOR: Bobo Diaz Interpretating Date/Time 02/22/2017 17:27:09
== END 2017-02-22 15:24 | disposition home or self-care (01) ==
LOC: PHED 11:22
DX: E86.0 Dehydration (principal); R94.31 Abnormal electrocardiogram [ECG] [EKG]; E78.00 Pure hypercholesterolemia, unspecified; J44.9 Chronic obstructive pulmonary disease, unspecified; K21.9 Gastro-esophageal reflux disease without esophagitis; I10 Essential (primary) hypertension; G47.00 Insomnia, unspecified; Z95.0 Presence of cardiac pacemaker; F32.9 Major depressive disorder, single episode, unspecified; F17.210 Nicotine dependence, cigarettes, uncomplicated; Z72.89 Other problems related to lifestyle
CPT/HCPCS: 71010; 80053; 81001; 84443; 84484; 85025; 85610; 85730; 93005; 96360; 99285; J7030

== ENCOUNTER 2017-08-10 09:31 | Emergency (ER) | payer OTHER ==
[~2017-08-10] VITALS: Ht 190.5 cm; Wt 61.5 kg
[2017-08-10 09:43] VITALS: BP 107/60; PULSE 67; RESP 16; TEMP 97.7; O2SAT 98
[2017-08-10] MEDS ORDERED: TETANUS/DIPHTHERIA TOXOID ADULT 0.5 ML VIAL IM ONE (11:00)
--- NOTE | 2017-08-10 11:25 | PD ---
HPI Chief Complaint: Skin Problem Time Seen by Provider: 10:44 Travel History International Travel<30 days: No Contact w/Intl Traveler<30days: No Traveled to known affect area: No History of Present Illness HPI 61-year-old male presents emergency department evaluation of a wound to the right foot after stepping on nail 2 days ago. Says that she was barefoot and helping a friend with some work when he actually stepped on the nail. Says that he believes he completely removed the nail. The pain is located around the area of the puncture wound which is his forefoot. the pain is mild, worse with walking and putting pressure on the foot. Denies numbness or tingling. Denies fevers or chills. Says this morning the area was more painful, red, swollen so he decided to come to emergency room for evaluation. He does not member his last tetanus vaccination. PFSH Past Medical History Hx Anticoagulant Therapy: Yes Depression: Yes Heart Rhythm Problems: Yes Cancer: No Cardiac Catheterization: No Cardiovascular Problems: Yes High Cholesterol: Yes Chemotherapy: No Congestive Heart Failure: No COPD: Yes Cerebrovascular Accident: No Diabetes: No Diminished Hearing: No Endocrine: No Gastrointestinal Disorders: Yes GERD: Yes Genitourinary: No Heparin Induced Thrombocytopen: No Hypertension: Yes Immune Disorder: No Implanted Vascular Access Dvce: Yes Insomnia: Yes Musculoskeletal: No Neurologic: No Psychiatric: Yes Reproductive: No Respiratory: No Immunizations Current: No Influenza Vaccination: No Past Surgical History Coronary Artery Bypass Graft: No Pacemaker: Yes Other Surgery: Yes (TESTICULAR CYST) Social History Alcohol Use: Yes (3-4 BEERS DAILY) Tobacco Use: Yes (1PPD) Substance Use: Yes Allergies-Medications (Allergen,Severity, Reaction): Coded Allergies: propoxyphene (Unverified Allergy, Severe, FACE SWELLS, 08/10/17) Reported Meds & Prescriptions Reported Meds & Active Scripts Active Reported Warfarin 10 Mg Tab 15 Mg PO DAILY Review of Systems Except as stated in HPI: all other systems reviewed are Neg Physical Exam Narrative GENERAL: Well-nourished, well-developed patient, in NAD SKIN: Focused skin assessment warm/dry. No rashes or lesions. R foot- forefoot with a puncture wound, surrounding erythema and edema. neurovascularly intact. HEAD: Normocephalic. Atraumatic. EYES: No scleral icterus. No injection or drainage. THROAT: No pharyngeal injection, exudates, or tonsillar hypertrophy. Airway is patent. NECK: Supple, trachea midline. No JVD or lymphadenopathy. No meningismus. CARDIOVASCULAR: Regular rate and rhythm without murmurs, gallops, or rubs. RESPIRATORY: Breath sounds equal bilaterally. No accessory muscle use. No wheezes, rales, or rhonchi MUSCULOSKELETAL: No cyanosis, or edema. BACK: Nontender without obvious deformity. No CVA tenderness. Data Data Last Documented VS Vital Signs Date Time Temp Pulse Resp B/P (MAP) Pulse Ox O2 Delivery O2 Flow Rate FiO2 08/10/17 09:43 97.7 67 16 107/60 (76) 98 Orders Orders Foot, Complete ([id number]) (08/10/17 ) Tetanus/Diphtheria Tox Adult (Tetanus/Di (08/10/17 11:00) MDM Medical Decision Making Medical Screen Exam Complete: Yes Emergency Medical Condition: Yes Differential Diagnosis Right foot puncture wound, foreign body, cellulitis, erysipelas Narrative Course 61-year-old male presents emergency department evaluation of a wound to the right foot after stepping on nail 2 days ago. Says that she was barefoot and helping a friend with some work when he actually stepped on the nail. Says that he believes he completely removed the nail. The pain is located around the area of the puncture wound which is his forefoot. the pain is mild, worse with walking and putting pressure on the foot. Denies numbness or tingling. Denies fevers or chills. Says this morning the area was more painful, red, swollen so he decided to come to emergency room for evaluation. He does not remember his last tetanus vaccination. Vital signs are stable. Patient's foot was soaked in iodine and warm water. The area was explored as the imaging study demonstrated a superficial foreign body. I was able to locate this foreign body and remove in one piece. The site was irrigated. There is no other evidence of foreign body Bactrim and Keflex for antibiotic use. I strongly advised to follow-up with merchandise marker for further evaluation and treatment. Information given to patient. Diagnosis Primary Impression: Foreign body Additional Impression: Foot infection Referrals: Annamaria Mark DPM, Jessica Isabel DPM [employer] Fabricating Supervisor Departure Forms: Tests/Procedures, Work Release Enter return to work date: Aug 12, 2017 Additional Instructions: Keep area clean and dry. Take all antibiotics as prescribed. Keep foot clean and dry. Follow-up with the merchandise marker as discussed to reduce the possibility of worsening infection. Disposition: 01 DISCHARGE HOME Condition: Stable Raya Magana Aug 10, 2017 11:25
--- NOTE | 2017-08-10 11:26 | RADRPT ---
EXAM DATE: 08/10/2017 11:15 AM EDT AGE/SEX: 61 years / Male INDICATIONS: Stepped on nail 2 days ago CLINICAL DATA: This is the patient's initial encounter. Patient reports that signs and symptoms have been present for 2 days and indicates a pain score of 7/10. MEDICAL/SURGICAL HISTORY: . Hypercholesterolemia. Gastroesophageal reflux disease. Chronic obs tructive pulmonary disease. Hypertension. Smoker. . Pacemaker. Testicular cyst removed. COMPARISON: No prior [facility] exams available for comparison. FINDINGS: 3 views of right foot demonstrate a punctate radiopaque foreign body identified within the plantar so ft tissues deep to the first digit base of the proximal phalanx. This is seen approximately 1 mm deep to the skin. The osseous structures are intact. Bones are normal in mineralization. CONCLUSION: Radiopaque foreign body identified within the plantar soft tissues as noted above. No evidence of oss eous injury. Electronically signed by: Jazmyn Townsend MD 08/10/2017 11:24 AM EDT
[2017-08-10] MEDS ORDERED: CEPH-460 PO (12:43)
[2017-08-10] MEDS ORDERED: BACT800T5 PO (12:43)
== END 2017-08-10 12:53 | disposition home or self-care (01) ==
LOC: PHED 09:31 → PHEFT 12:53
DX: S91.341A Puncture wound with foreign body, right foot, initial encounter (principal); L08.9 Local infection of the skin and subcutaneous tissue, unspecified; W45.0XXA Nail entering through skin, initial encounter; E78.00 Pure hypercholesterolemia, unspecified; F32.9 Major depressive disorder, single episode, unspecified; I10 Essential (primary) hypertension; J44.9 Chronic obstructive pulmonary disease, unspecified; F17.200 Nicotine dependence, unspecified, uncomplicated; Z23 Encounter for immunization
CPT/HCPCS: 73630; 90471; 90714

== ENCOUNTER 2018-04-24 08:15 | Observation (INO) ==
[2018-04-24] MEDS ORDERED: fentaNYL Citrate Inj 100 MCG/2 ML Ampul IV.PUSH ONE (08:40)
[2018-04-24 08:48] LABS: Eos # (Auto) 0.1 th/mm3 (0.0-0.4); Eos % (Auto) 1.6 % (0.0-4.0); Hematocrit 38.8 % (39.0-51.0); Hemoglobin 12.7 gm/dL (13.0-17.0); Lymph # (Auto) 1.1 th/mm3 (1.0-4.8); Lymph % (Auto) 25.1 % (9.0-44.0); Mean Corpuscular HGB Conc 32.7 % (32.0-36.0); Mean Corpuscular Hemoglobin 30.7 pg (27.0-34.0); Mean Corpuscular Volume 93.7 fL (80.0-100.0); Mono # (Auto) 0.4 th/mm3 (0.0-0.9); Mono % (Auto) 8.7 % (0.0-8.0); Neut # (Auto) 2.7 th/mm3 (1.8-7.7); Neut % (Auto) 63.6 % (16.0-70.0); Platelet Count 340 th/mm3 (150-450); Red Blood Count 4.14 mil/mm3 (4.50-5.90); Red Cell Distribution Width 13.7 % (11.6-17.2); White Blood Count 4.3 th/mm3 (4.0-11.0)
--- NOTE | 2018-04-24 08:52 | ED ---
HPI General Chief Complaint: Chest Pain Stated Complaint: Chest Pain x2hrs Time Seen by Provider: 04/24/18 08:25 Source: patient Mode of arrival: ambulatory Limitations: no limitations History of Present Illness HPI narrative: 61-year-old male presents the emergency department complaining of chest pain and pressure. He states symptoms started couple days ago, initially were intermittent, been constant since this morning. States it feels like indigestion or pressure in his chest but he does not think it is. States symptoms are occasionally affected by eating, not clearly exertional. They do radiate into his right arm. He denies ever having had similar symptoms before. Review of systems positive for some occasional headache, as well as worsening of his arthritis pain is whether his change. No other symptoms. He has a history of COPD, hyperlipidemia, hypertension. He has a pacemaker placed. He has had a PE in the past, 8 or 9 years ago, was on blood thinners up until about a year or so ago. He does smoke tobacco every other day. Review of records shows a negative stress test in March 2016. Denies any history of CAD. Related Data Home Medications Medication Instructions Recorded Confirmed No Known Home Medications 04/24/18 04/24/18 Allergies Allergy/AdvReac Type Severity Reaction Status Date / Time propoxyphene Allergy Severe FACE SWELLS Verified 04/24/18 08:30 Review of Systems ROS: all other systems reviewed are negative PMFSH History History Provided By: Patient and Medical Record Medical History Medical History COPD (chronic obstructive pulmonary disease) (Chronic) Depression (Chronic) Hyperlipidemia (Chronic) Hypertension (Chronic) Pacemaker (Chronic) Pulmonary embolism (Inactive) Surgical History Surgical History H/O removal of cyst (Acute) Social History Social History Substance History: No History of Abuse Second Hand Smoke Exposure: Yes Smoking Status: Current every day smoker Tobacco Type: Cigarettes How Often Do You Have a Drink Containing Alcohol: 4 or more times a week Recent Travel in [facility] within the Last 8 Weeks: No Recent Out of Country Travel within the Last 8 Weeks: No Exam Narrative Exam Narrative: GENERAL: 59-year-old man, very thin, appears older than stated age, little bit disheveled. SKIN: Focused skin assessment warm/dry. HEAD: Atraumatic. Normocephalic. EYES: Pupils equal and round. No scleral icterus. No injection or drainage. ENT: No nasal bleeding or discharge. Mucous membranes pink and moist. NECK: Trachea midline. No JVD. CARDIOVASCULAR: Regular rate and rhythm. No murmur appreciated. RESPIRATORY: No accessory muscle use. Clear to auscultation. Breath sounds equal bilaterally. GASTROINTESTINAL: Abdomen soft, non-tender, nondistended. Hepatic and splenic margins not palpable. MUSCULOSKELETAL: No obvious deformities. Decreased muscle bulk. NEUROLOGICAL: Awake and alert. No obvious cranial nerve deficits. Motor grossly within normal limits. Normal speech. PSYCHIATRIC: Appropriate mood and affect; insight and judgment normal. Course Initial Documented Vital Signs Temperature 97.5 F L 04/24/18 08:20 Pulse Rate 64 04/24/18 08:20 Respiratory Rate 18 04/24/18 08:20 Blood Pressure 117/82 04/24/18 08:20 Pulse Oximetry 98 04/24/18 08:20 Last Documented Vital Signs Temperature 97.5 F L 04/24/18 08:20 Pulse Rate 65 04/24/18 10:25 Respiratory Rate 16 04/24/18 10:25 Blood Pressure 128/77 04/24/18 10:25 Pulse Oximetry 96 04/24/18 09:51 Clinical Decision Support HEART Score Questions History: Moderately suspicious EKG: Normal Age: 45-64 years Risk Factors: 3 or more Risk Factors or Hx of Atherosclerotic Disease Initial Troponin: Normal Limit Heart Score HEART Score: 4 Moderate risk. Medical Decision Making MDM Narrative Medical decision making narrative: 62-year-old man, nontoxic, presents with chest pain rating to the right arm intermittently. Multiple risk factors for CAD. Last stress was over 2 years ago. History is moderately suggestive of ACS. Will check lipase. Also check d-dimer. He had multiple negative CT pulmonary angiograms in the past couple years. Likely chest pain center. Medical Screen Exam Complete: Yes Emergency Medical Condition: Yes Lab Data Result diagrams: 04/24/18 08:35 04/24/18 08:35 Lab Results 04/24/18 04/24/18 04/24/18 Range/Units 08:35 08:35 08:35 CBC w Diff Auto diff final WBC 4.3 (4.0-11.0) th/mm3 RBC 4.14 L (4.50-5.90) mil/mm3 Hgb 12.7 L (13.0-17.0) gm/dL Hct 38.8 L (39.0-51.0) % MCV 93.7 (80.0-100.0) fL MCH 30.7 (27.0-34.0) pg MCHC 32.7 (32.0-36.0) % RDW 13.7 (11.6-17.2) % Plt Count 340 (150-450) th/mm3 MPV 9.0 (7.0-11.0) fL Neut % (Auto) 63.6 (16.0-70.0) % Lymph % (Auto) 25.1 (9.0-44.0) % [place] % (Auto) 8.7 H (0.0-8.0) % Eos % (Auto) 1.6 (0.0-4.0) % Baso % (Auto) 1.0 (0.0-2.0) % Neut # (Auto) 2.7 (1.8-7.7) th/mm3 Lymph # (Auto) 1.1 (1.0-4.8) th/mm3 [place] # (Auto) 0.4 (0.0-0.9) th/mm3 Eos # (Auto) 0.1 (0.0-0.4) th/mm3 Baso # (Auto) 0.0 (0.0-0.2) th/mm3 WBC Differential . Differential Comment . D-Dimer Quant (PE/DVT) 0.67 H (0.00-0.50) mg/L FEU Sodium 138 (136-145) meq/L Potassium 4.0 (3.5-5.1) meq/L Chloride 104 (98-107) meq/L Carbon Dioxide 29.7 (21.0-32.0) meq/L Anion Gap 4 L (5-15) meq/L BUN 24 H (7-18) mg/dL Creatinine 1.00 (0.60-1.30) mg/dL Estimated GFR 75 L (>89) mL/min Random Glucose 147 H (74-106) mg/dL Calcium 8.2 L (8.5-10.1) mg/dL Total Bilirubin 0.3 (0.2-1.0) mg/dL AST 19 (15-37) U/L ALT 20 (12-78) U/L Alkaline Phosphatase 96 (45-117) U/L Troponin I Less than 0.02 L (0.02-0.05) ng/mL Total Protein 7.3 (6.4-8.2) g/dL Albumin 3.4 (3.4-5.0) g/dL Lipase 184 (73-393) U/L Imaging Data Radiologist's impression: Chest X-Ray 04/24/18 08:36 CONCLUSION: 1. No acute abnormality or significant interval change. 2. Stable changes suggestive of obstructive pulmonary disease. Chest CTA 04/24/18 09:41 CONCLUSION: 1. The study is negative for pulmonary embolism. 2. 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 3. There is a new greater than 3 cm masslike opacity in left costophrenic angle devoid of air bronchograms. This is a new finding from prior CT pulmonary angiogram January 2017. Differential considerations include malignancy, infiltrate, and infarction. ECG Data Attestation: I personally reviewed and interpreted this ECG as follows: Interpretation: Electronic atrial pacing, rate of 63, normal axis, normal intervals, no definite evidence of acute ischemia. Discharge Plan Discharge Disposition Patient Disposition: ED Admit(ED Internal Use Only) Discharge Order Discharge Orders: ED Use Only Admit Order (Routine); Ordered 04/24/18 Ordered By: Alexander Roman Physicians Team ED Provider: Alexander Roman Primary Care Provider: Primary Care Christiano,Anel Attending Provider: Doug Washington Discharge Interventions Interventions: ED Discharge Assessment Last Done: 04/24/18 11:00 Status ED Status: Admitted Observation Patient
[2018-04-24 08:53] LABS: Chloride 104 meq/L (98-107); Sodium 138 meq/L (136-145)
[2018-04-24 08:57] LABS: Calcium 8.2 mg/dL (8.5-10.1)
[2018-04-24 08:58] LABS: Albumin 3.4 g/dL (3.4-5.0); Anion Gap 4 meq/L (5-15); Blood Urea Nitrogen 24 mg/dL (7-18); Carbon Dioxide 29.7 meq/L (21.0-32.0); Glucose,Random 147 mg/dL (74-106); Lipase 184 U/L (73-393)
[2018-04-24 09:01] LABS: Alanine Aminotransferase 20 U/L (12-78); Aspartate Aminotransferase 19 U/L (15-37); Glomerular Filtration Rate 75 mL/min (>89)
--- NOTE | 2018-04-24 09:01 | XR ---
EXAM DATE: 04/24/2018 8:59 AM EST AGE/SEX: 62 years / Male INDICATIONS: . Chest pain/pressure. CLINICAL DATA: This is the patient's initial encounter. Patient reports that signs and symptoms have been present for 3 days and indicates a pain score of 5/10. MEDICAL/SURGICAL HISTORY: Chronic obstructive pulmonary disease. Hypertension. Pulmonary embol i. Smoker. Pacemaker. COMPARISON: [facility], CHEST SINGLE AP, 02/22/2017. . FINDINGS: Lungs are hyperexpanded without focal pleural or parenchymal opacities. Dual-lead pacemaker in stable position. Cardiomediastinal contours are within normal limits. Bony thorax is intact. CONCLUSION: 1. No acute abnormality or significant interval change. 2. Stable changes suggestive of obstructive pulmonary disease. Electronically signed by: Micheal Weaver MD Board Certified Radiologist 04/24/2018 9:00 AM EST
[2018-04-24 09:03] LABS: Total Protein 7.3 g/dL (6.4-8.2)
[2018-04-24 09:04] LABS: Alkaline Phosphatase 96 U/L (45-117)
[2018-04-24] MEDS ORDERED: Lidocaine 1%/Epinephrine 1:100,000 Inj 30 ML Vial INFILTRATN ONE (10:14)
--- NOTE | 2018-04-24 10:18 | CT ---
EXAM DATE: 04/24/2018 10:05 AM EST AGE/SEX: 62 years / Male INDICATIONS: Mid chest pain with right arm pain. CLINICAL DATA: This is the patient's initial encounter. Patient reports that signs and symptoms have been present for 2 days and indicates a pain score of 7/10. MEDICAL/SURGICAL HISTORY: Cardiovascular disease. Chronic obstructive pulmonary disease. Hyperten angie. Pulmonary embolism. Pacemaker. RADIATION DOSE: 6.45 CTDI (mGy) COMPARISON: [facility], CT PULMONARY ANGIOGRAM, 02/01/2017. . TECHNIQUE: Volumetric scanning was performed using a multi-row detector CT scanner during bolus infu angie of 75 ml Omnipaque 350 (iohexol) nonionic water-soluble contrast as a single exam dose. The jenny a was post processed with a variety of visualization algorithms including full volume maximum intensi ty projection and sliding thin slab reformation. Using automated exposure control and adjustment of t he mA and/or kV according to patient size, radiation dose was kept as low as reasonably achievable to obtain optimal diagnostic quality images. DICOM format image data is available electronically for r eview and comparison. FINDINGS: Pulmonary Arteries: No filling defects are seen in the pulmonary arteries out to the subsegmental ve ssels. The main, left, and right pulmonary arteries are normal in diameter. There is narrowing of th e right upper lobe pulmonary artery which is stable from prior pulmonary angiograms. Lung: There is a irregular shape area of dense consolidation in the left costophrenic angle which me asures 3.5 x 1.9 cm. On the sagittal images, bronchopulmonary thickening extends into the mass. This area is devoid of air bronchograms. No associated calcifications. Effusion: None. Mediastinum: No evidence of mediastinal or hilar adenopathy. Other: The axilla is unremarkable. CONCLUSION: 1. The study is negative for pulmonary embolism. 2. 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 3. There is a new greater than 3 cm masslike opacity in left costophrenic angle devoid of air bronch ograms. This is a new finding from prior CT pulmonary angiogram January 2017. Differential considera tions include malignancy, infiltrate, and infarction. Electronically signed by: Dick Branch MD Board Certified Radiologist 04/24/2018 10:16 AM EST
[2018-04-24] MEDS: Sod Chloride 0.9% Inj 1,000 ML IV.CONT SCH (11:19)
[2018-04-24 12:04] LABS: Creatine Kinase 58 U/L (39-308)
--- NOTE | 2018-04-24 12:15 | ECG ---
Date Performed: 04/24/2018 Time Performed: 08:21:29 PTAGE: 62 years EK% Atrial pacing LVH by voltage ABNORMAL ECG Since the PREVIOUS TRACING , no significant change noted PREVIOUS TRACIN12/19/2017 08.25 DOCTOR: Cirilo Carranza Interpretating Date/Time 04/24/2018 12:13:48
--- NOTE | 2018-04-24 14:16 | P.HPIM ---
History of Present Illness Primary Care Physician: No Primary Care Physician Chief Complaint: Chest pain History of Present Illness: 62-year-old male with known history of symptomatic bradycardia requiring atrial pacemaker who presented to hospital for chest pain. Patient indicates that he is in his normal state of health until last night at approximately 5 PM when he started developing some chest pain in the middle part of his chest which was a 3/10 on pain scale. He fell asleep and when he woke up the pain was still there and started radiating down his right arm. He denied any nausea, vomiting, diaphoresis, shortness of breath , dyspnea, lightheadedness, dizziness. Patient came to emergency department because he still had a persistent pain. Patient had workup and was unremarkable. It is recommended by the ER physician the patient be observed and chest pain center for further evaluation and management. Patient states that last time he had any cardiac workup was in a couple years ago. At the time of evaluating patient he is asymptomatic. States that he had coffee this morning prior to coming to the hospital. Diagnosis (1) Chest pain: Review of Systems Review of Systems: all other systems reviewed are negative Cardiovascular: Reports chest pain and Reports radiating jaw, neck or arm pain PMFSH Medical History Medical History COPD (chronic obstructive pulmonary disease) (Chronic) Depression (Chronic) Hyperlipidemia (Chronic) Hypertension (Chronic) Pulmonary embolism (Inactive) Surgical History Surgical History Pacemaker (Chronic) H/O removal of cyst (Acute) Social History Social History Substance History: No History of Abuse Second Hand Smoke Exposure: Yes Smoking Status: Current every day smoker Tobacco Type: Cigarettes Packs Per Day: 1 Cigarettes Per Day: 20.0 Years Smoked: 50 Pack-Years: 50.00 How Often Do You Have a Drink Containing Alcohol: 4 or more times a week Recent Travel in [facility] within the Last 8 Weeks: No Recent Out of Country Travel within the Last 8 Weeks: No Substance Abuse Detail Alcohol: Substance Use Status: Active Route Used Substance Abuse: By Mouth Substance Frequency: "couple a day" Immunization History Tetanus Immunization: <5 Years Medications and Allergies Allergies Allergy/AdvReac Type Severity Reaction Status Date / Time propoxyphene Allergy Severe FACE SWELLS Verified 04/24/18 08:30 Home Medications Medication Instructions Recorded Confirmed Type No Known Home Medications 04/24/18 04/24/18 History Active Medications: Active Medications Aspirin (Aspirin) 325 mg PO DAILY [facility] Heparin Sodium (Porcine) (Heparin Inj) 5,000 units SQ Q12H [facility] Sodium Chloride (Ns Inj) 1,000 mls @ 75 mls/hr IV.CONT .[id number] [facility] Last Admin: 04/24/18 11:19 Dose: 75 mls/hr Nitroglycerin (Nitrostat Sl) 0.4 mg SL Q5M PRN PRN Reason: CHEST PAIN Ondansetron HCl (Zofran Inj) 4 mg IV.PUSH Q6H PRN PRN Reason: NAUSEA Sodium Chloride (Ns Flush) 2 ml IV.FLUSH UNSCH PRN PRN Reason: FLUSH AFTER USING IV ACCESS Sodium Chloride (Ns Flush) 2 ml IV.FLUSH PRN PRN PRN Reason: FLUSH AFTER USING IV ACCESS Sodium Chloride (Ns Flush) 2 ml IV.FLUSH BID [facility] Physical Exam Vital signs: Vital Signs 04/24/18 08:20 04/24/18 09:08 04/24/18 09:51 Temperature 97.5 F L Pulse Rate 64 60 Respiratory Rate 18 16 Blood Pressure 117/82 128/85 136/87 Pulse Oximetry 98 98 96 04/24/18 10:25 04/24/18 12:00 Temperature 97.6 F Pulse Rate 65 61 Respiratory Rate 16 17 Blood Pressure 128/77 146/84 H Pulse Oximetry 99 Intake & Output 04/23/18 04/24/18 04/24/18 18:59 06:59 18:59 Intake Total 150 / 150 Balance 150 / 150 Weight 68 kg Intake: IV 150 / 150 Levaquin 750 mg Premix Inj 150 150 / 150 ML @ 100 mls/hr IV.SIG ONCE ONE Rx#:[id number] Narrative: GENERAL: Well-developed, malnourished, in no acute distress. alert and orientated HEENT: Head is normocephalic without any lesions or masses noted. Facial features are symmetric. Eyes: Pupils equal round reactive to light. Extraocular muscles are intact. Conjunctivae were clear. Oropharyngeal: Pharynx without any erythema edema. Tongue is midline without deviation. Buccal mucosa is moist without any masses or lesions NECK: Supple without any masses. Trachea midline no deviation. No JVD, no bruits are appreciated CARDIAC: Regular rhythm, regular rate. S1/S2 are heard. No murmurs gallops or rubs. LUNGS: Clear to auscultation bilaterally. No wheeze, rhonchi or rales. No use of accessory muscles on inspiration or expiration. ABDOMEN: Soft, nontender. Nondistended. Bowel sounds heard in all 4 quadrants. No organomegaly or masses. Negative rebound, negative guarding EXTREMITIES: No edema, pulses are equal bilaterally. No cyanosis or clubbing NEUROLOGY: Mood and affect appear appropriate. Cranial nerves II through XII grossly intact. Muscle strength 5/5 in upper and lower extremities bilaterally. Deep tendon reflexes are 2+ in upper and lower extremities bilaterally. Results Labs CBC & Chem 7: 04/24/18 08:35 04/24/18 08:35 Imaging Impressions Chest X-Ray 04/24/18 08:36 CONCLUSION: 1. No acute abnormality or significant interval change. 2. Stable changes suggestive of obstructive pulmonary disease. Chest CTA 04/24/18 09:41 CONCLUSION: 1. The study is negative for pulmonary embolism. 2. 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 3. There is a new greater than 3 cm masslike opacity in left costophrenic angle devoid of air bronchograms. This is a new finding from prior CT pulmonary angiogram January 2017. Differential considerations include malignancy, infiltrate, and infarction. Caprini VTE Risk Assessment Caprini VTE Risk Assessment: Moderate/High Risk (score >= 2) Caprini Risk Assessment Model: Point Value = 1 Point Value = 2 Point Value = 3 Point Value = 5 Age 41-60 Minor surgery BMI > 25 kg/m2 Swollen legs Varicose veins or History of unexplained or recurrent spontaneous Oral contraceptives or hormone replacement Sepsis (< 1 month) Serious lung disease, including pneumonia (< 1 month) Abnormal pulmonary function Acute myocardial infarction Congestive heart failure (< 1 month) History of inflammatory bowel disease Medical patient at bed rest Age 61-74 Arthroscopic surgery Major open surgery (> 45 min) Laparoscopic surgery (> 45 min) Malignancy Confined to bed (> 72 hours) Immobilizing plaster cast Central venous access Age >= 75 History of VTE Family history of VTE Factor V Leiden Prothrombin [id number] Lupus anticoagulant Anticardiolipin antibodies Elevated serum homocysteine Heparin-induced thrombocytopenia Other congenital or acquired thrombophilia Stroke (< 1 month) Elective arthroplasty Hip, pelvis, or leg fracture Acute spinal cord injury (< 1 month) Prophylaxis Regimen: Total Risk Factor Score Risk Level Prophylaxis Regimen 0-1 Low Early ambulation 2 Moderate Order ONE of the following: *Sequential Compression Device (SCD) *Heparin 5000 units SQ BID 3-4 Higher Order ONE of the following medications: *Heparin 5000 units SQ TID *Enoxaparin/Lovenox 40 mg SQ daily (WT < 150 kg, CrCl > 30 mL/min) *Enoxaparin/Lovenox 30 mg SQ daily (WT < 150 kg, CrCl > 10-29 mL/min) *Enoxaparin/Lovenox 30 mg SQ BID (WT < 150 kg, CrCl > 30 mL/min) AND/OR *Sequential Compression Device (SCD) 5 or more Highest Order ONE of the following medications: *Heparin 5000 units SQ TID (Preferred with Epidurals) *Enoxaparin/Lovenox 40 mg SQ daily (WT < 150 kg, CrCl > 30 mL/min) *Enoxaparin/Lovenox 30 mg SQ daily (WT < 150 kg, CrCl > 10-29 mL/min) *Enoxaparin/Lovenox 30 mg SQ BID (WT < 150 kg, CrCl > 30 mL/min) AND *Sequential Compression Device (SCD) Assessment and Plan (1) Chest pain: Code(s): R07.9 - Chest pain, unspecified Status: Acute Plan Chest pain, atypical Patient with increased risk factors to include tobacco use Patient has been ruled out for acute coronary event with serial cardiac enzymes which have remained negative Serial EKGs reviewed by myself which shows an atrial paced rhythm We will need to pursue myocardial perfusion study to rule out any underlying ischemia secondary to patient have an atrial pacemaker. Patient did have caffeine today so unable to pursue testing today Continue aspirin, nitroglycerin as needed Oxygen as needed DVT prevention Subcutaneous heparin Discussed Condition With: Patient, nursing staff, Dr. Washington
[2018-04-24] MEDS ORDERED: Regadenoson Inj 0.4 MG/5 ML Syringe IV.PUSH ONE (14:21)
[2018-04-24 15:41] LABS: Creatine Kinase 62 U/L (39-308)
[2018-04-24] MEDS: Heparin - SQ 10,000 UNITS/ML Vial SQ SCH (20:53)
[2018-04-25] MEDS: Sod Chloride 0.9% Inj 1,000 ML IV.CONT SCH ×2 (01:57→16:30)
--- NOTE | 2018-04-25 08:58 | P.PNIM ---
Subjective Interval history: 62-year-old male who is seen examined today for follow-up on chest pain. Patient denies any recurrent chest pain. Vital signs are stable. Patient remains afebrile. Reviewed CT results with the patient in regards to the greater than 3 cm masslike area in his left lung. Patient denies any significant weight loss. States he only lost about 5 pounds. Patient has not had any constitutional symptoms with fever, chills, night sweats. Discussed with him evaluation to include needle aspiration/biopsy. Patient is in agreement with treatment plan. Physical Exam Vital signs: Vital Signs 04/24/18 09:08 04/24/18 09:51 04/24/18 10:25 Temperature Pulse Rate 60 65 Respiratory Rate 16 16 Blood Pressure 128/85 136/87 128/77 Pulse Oximetry 98 96 04/24/18 12:00 04/24/18 16:00 04/24/18 17:24 Temperature 97.6 F 97.0 F L Pulse Rate 61 60 60 Respiratory Rate 17 16 Blood Pressure 146/84 H 130/71 Pulse Oximetry 99 96 04/24/18 19:43 04/24/18 20:00 04/25/18 00:00 Temperature 98.0 F 98.2 F Pulse Rate 60 66 Respiratory Rate 18 19 Blood Pressure 109/67 108/67 Pulse Oximetry 98 95 96 04/25/18 04:00 Temperature 98.1 F Pulse Rate 65 Respiratory Rate 19 Blood Pressure 105/62 Pulse Oximetry 96 Intake & Output 04/24/18 04/25/18 04/25/18 18:59 06:59 18:59 Intake Total 150 / 150 1000 / 1000 Balance 150 / 150 1000 / 1000 Weight 68 kg 68.4 kg Intake: IV 150 / 150 1000 / 1000 NS Inj 1,000 ML @ 75 mls/hr IV. 1000 / 1000 CONT .[id number] JEANINE Rx#: [id number] Levaquin 750 mg Premix Inj 150 150 / 150 ML @ 100 mls/hr IV.SIG ONCE ONE Rx#:[id number] Other: # Voids 2 3 Weight On Admission 68 kg Narrative: GENERAL: Well-developed, malnourished, in no acute distress. alert and orientated HEENT: Head is normocephalic without any lesions or masses noted. Facial features are symmetric. Eyes: Extraocular muscles are intact. Conjunctivae were clear. NECK: Supple without any masses. Trachea midline no deviation. No JVD, CARDIAC: Regular rhythm, regular rate. S1/S2 are heard. No murmurs gallops or rubs. LUNGS: Clear to auscultation bilaterally. No wheeze, rhonchi or rales. No use of accessory muscles on inspiration or expiration. ABDOMEN: Soft, nontender. Nondistended. Bowel sounds heard in all 4 quadrants. No organomegaly or masses. Negative rebound, negative guarding EXTREMITIES: No edema, pulses are equal bilaterally. No cyanosis or clubbing NEUROLOGY: Mood and affect appear appropriate. Cranial nerves II through XII grossly intact. Moving all extremities, speech is clear Results Labs CBC & Chem 7: 04/24/18 08:35 04/24/18 08:35 Imaging Imaging: Impressions Chest X-Ray 04/24/18 08:36 CONCLUSION: 1. No acute abnormality or significant interval change. 2. Stable changes suggestive of obstructive pulmonary disease. Chest CTA 04/24/18 09:41 CONCLUSION: 1. The study is negative for pulmonary embolism. 2. 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 3. There is a new greater than 3 cm masslike opacity in left costophrenic angle devoid of air bronchograms. This is a new finding from prior CT pulmonary angiogram January 2017. Differential considerations include malignancy, infiltrate, and infarction. Assessment and Plan (1) Chest pain: Code(s): R07.9 - Chest pain, unspecified Status: Acute Plan Chest pain, atypical Patient with increased risk factors to include tobacco use Patient has been ruled out for acute coronary event with serial cardiac enzymes which have remained negative Serial EKGs reviewed by myself which shows an atrial paced rhythm Myocardial perfusion study was performed and indicated normal examination, no signs of ischemia. Low risk Continue aspirin, nitroglycerin as needed Oxygen as needed Abnormal CT scan indicating new masslike area in the left lower lung Awaiting CT-guided aspiration/biopsy Pulmonology consult for further recommendations DVT prevention Subcutaneous heparin Progress Note: Quality VTE Deep Vein Thrombosis/Pulmonary Embolism Present on Admission: No
[2018-04-25] MEDS ORDERED: Aspirin 325 MG Tablet PO SCH (09:00)
[2018-04-25] MEDS: Heparin - SQ 10,000 UNITS/ML Vial SQ SCH ×2 (09:21→20:26)
--- NOTE | 2018-04-25 12:40 | NM ---
EXAM DATE: 04/25/2018 12:35 PM EST AGE/SEX: 62 years / Male INDICATIONS:Abnormal EKG. Angina Mid chest pain for one day. CLINICAL DATA: This is the patient's initial encounter. Patient reports that signs and symptoms have been present for 1 day and indicates a pain score of 3/10. MEDICAL/SURGICAL HISTORY: Chronic obstructive pulmonary disease. Hypertension. Pacemaker. COMPARISON: [facility], MYOCARDIAL PERF PHARM SPECT, 04/08/2015. [facility], MYOCARDIAL PERF PHARM SPECT, 10/20. . No external comparison. DOSE: 8.7 mCi Tc 99m Myoview at rest 26.7 mCi [id number] at stress 0.4 mg Lexiscan STRESS SYMPTOMS: None. EJECTION FRACTION: 53 % TECHNIQUE: The patient underwent pharmacologic stress with infusion of prescribed dose. Continuous ECG tracing was monitored during stress. Gated SPECT imaging was performed after stress and conventi onal SPECT imaging was performed at rest. The examination was performed on a SPECT/CT scanner, both attenuation and non-corrected datasets were reviewed. FINDINGS: Distribution: The maximum perfused segment at stress is in the septal wall. Perfusion Study: The pattern of perfusion at stress is within normal limits with regional variation s perfusion within 35%. There is some apical thinning which is similar to prior marker perfusion scan in 2015. No reversible areas seen.. Gated Study: There are intact wall motion and wall thickening without hypokinetic or dyskinetic segm ents. The ejection fraction is calculated at 53%. RISK CATEGORY: Low (<1% Annual Mortality Rate) CONCLUSION: 1. No evidence of stress-induced ischemia. Stable appearance to apical thinning when compared to 201 5. 2. Intact wall motion with 53% ejection fraction. Electronically signed by: Dick Branch MD Board Certified Radiologist 04/25/2018 12:39 PM EST
[2018-04-25 13:56] LABS: INR 1.1 Ratio; Prothrombin Time 10.7 sec (9.8-11.6)
--- NOTE | 2018-04-25 14:40 | ECG ---
Date Performed: 04/24/2018 Time Performed: 11:25:30 PTAGE: 62 years EKG: ELECTRONIC ATRIAL PACEMAKER POSSIBLE RIGHT VENTRICULAR CONDUCTION DELAY VOLTAGE CRITERIA FO R LVH ABNORMAL ECG Since the PREVIOUS TRACING , no significant change noted PREVIOUS TRACIN04/24/2018 08.21 DOCTOR: Ela Stephens Interpretating Date/Time 04/25/2018 14:36:13
--- NOTE | 2018-04-25 14:40 | ECG ---
Date Performed: 04/24/2018 Time Performed: 14:00:20 PTAGE: 62 years EKG: ELECTRONIC ATRIAL PACEMAKER POSSIBLE RIGHT VENTRICULAR CONDUCTION DELAY VOLTAGE CRITERIA FO R LVH ABNORMAL ECG Since the PREVIOUS TRACING , no significant change noted PREVIOUS TRACIN04/24/2018 11.25 DOCTOR: Ela Stephens Interpretating Date/Time 04/25/2018 14:36:22
--- NOTE | 2018-04-25 15:32 | MB ---
cc: Pabol Man MD DATE: 04/25/2018 PULMONARY CONSULTATION HISTORY OF PRESENT ILLNESS: The patient is a 62-year-old male with a past medical history of COPD, active tobacco use, hyperlipidemia, hypertension, depression, previous pacemaker placement, who presented to [facility] for chest pain radiating to his right arm. The patient also reports some mild shortness of breath along with occasional cough. He denies any orthopnea, PND, or edema of lower extremities. Also, he denies any nausea, vomiting or abdominal pain. A chest x-ray on admission showed no acute abnormalities, chronic obstructive pulmonary disease changes. He underwent a CT angiogram of the chest, which was negative for pulmonary embolism; however, it showed a 3 cm mass-like opacity in the left costophrenic angle. Pulmonary medicine was consulted regarding abnormal CT chest. He also underwent a myocardial perfusion scan, which showed no evidence of any stress-induced ischemia; EF 53%. The patient is an active smoker where he smokes a pack every 2 days and has been a smoker for 30 years. He denies any wheezing or constitutional symptoms. He reports decreased p.o. intake and 8-pound weight loss in two weeks. PAST MEDICAL HISTORY: Significant for COPD, depression, hyperlipidemia, hypertension. PAST SURGICAL HISTORY: Previous pacemaker placement, previous cyst removal. ALLERGIES: PROPOXYPHENE. SOCIAL HISTORY: Active smoker where he smokes a pack every 2 days and has been a smoker for 30 years. The patient drinks 2 beers daily. FAMILY HISTORY: Mother had malignancy, unknown type. ACTIVE MEDICATIONS: Include Albuterol DuoNeb. REVIEW OF SYSTEMS: As per HPI, rest of the review of systems is unremarkable. PHYSICAL EXAMINATION: GENERAL: A 62-year-old male lying in bed in no acute respiratory distress. VITAL SIGNS: Temperature of 96.8, pulse of 62, respiratory rate 16, blood pressure 115/72, saturation 97% on room air. HEENT: Atraumatic, normocephalic. Pupils are equal, round, reactive to light and accommodation. Extraocular muscles intact. Conjunctivae pink. Nonicteric sclerae. Oral mucosa within normal. NECK: Supple. No JVD, adenopathy or thyromegaly. Trachea in the midline. CARDIOVASCULAR: Regular rate and rhythm. Normal S1, S2. No murmurs, rubs or gallops noted. PULMONARY: Bilateral equal air entry. No rales or wheezing. ABDOMEN: Soft, nontender, nondistended, positive bowel sounds. EXTREMITIES: No cyanosis, clubbing or edema. NEUROLOGIC: No focal sensory deficit. LABORATORY DATA: WBC 4.3, hemoglobin 12.7, hematocrit 38, and platelet count of 340. Sodium of 138, potassium 4, chloride 104, CO2 of 29, BUN 24, creatinine 1, glucose 147. Troponin less than 0.02 x3 sets. RADIOGRAPHIC STUDIES: CTA of the chest showed no evidence of PE, a 3 cm mass-like opacity in the left costophrenic angle. IMPRESSION: 1. Lung mass. A 3 cm mass-like opacity left costophrenic angle; differential diagnosis infiltrate versus malignancy. 2. Chronic obstructive pulmonary disease. 3. Active tobacco use. 4. Atypical chest pain. RECOMMENDATIONS: 1. CT scan of the chest findings discussed with the patient. We will plan to proceed with a CT-guided lung biopsy to rule out bronchogenic carcinoma. 2. Place on bronchodilators in the form of DuoNeb every 2 p.r.n. for shortness of breath and add Symbicort 160/4.5 two puffs b.i.d. 2. We will obtain a PFT to assess the severity of his obstructive lung disease. 3. The patient was counseled regarding smoking cessation. 4. We will place on Levaquin 500 mg daily p.o. for 7 days. 5. Obtain a sputum culture with Gram stain. 6. Myocardial perfusion study showed no evidence of any ischemia. 6. Gastrointestinal and deep venous thrombosis prophylaxis per primary team. 7. Further recommendations will be based on hospital course. MD CONNOR Lam/geovani , 03:13 PM , 03:22 PM
[2018-04-25] MEDS: levoFLOXacin 500 MG Tablet PO SCH (15:46)
[2018-04-25] MEDS ORDERED: levoFLOXacin Liq 25 MG/ML 100 ML Bottle PO SCH (16:00)
--- NOTE | 2018-04-25 17:14 | TR ---
Date Performed: 04/25/2018 Time Performed: 11:51:52 DOCTOR: Marycarmen Cortes DRUG LIST: CLINICAL HISTORY: ANGINA REASON FOR TEST: Angina REASON FOR ENDING: OBSERVATION: CONCLUSION: Lexiscan stress test was performed under standard four minute protocol. Radionuclid e was injected one minute prior to ending the test. No electrocardiographic abormalities were present to suggest ischemia. Nuclear imaging and interpretation are pending. COMMENTS: Lexiscan stress test was performed under standard four minute protocol. Radionuclide was injected one minute prior to ending the test. No electrocardiographic abormalities were present t o suggest ischemia. Nuclear imaging and interpretation are pending.
[2018-04-25] MEDS: Budesonide-Formoterol 160/4.5 MCG 6 GM Inhaler INH SCH (20:30)
[2018-04-26] MEDS: Sod Chloride 0.9% Inj 1,000 ML IV.CONT SCH ×2 (03:31→16:02)
[2018-04-26] MEDS: levoFLOXacin 500 MG Tablet PO SCH (09:05)
[2018-04-26] MEDS: Heparin - SQ 10,000 UNITS/ML Vial SQ SCH ×2 (09:05→20:39)
[2018-04-26] MEDS: Budesonide-Formoterol 160/4.5 MCG 6 GM Inhaler INH SCH ×2 (09:05→20:41)
--- NOTE | 2018-04-26 11:07 | P.PNIM ---
Subjective Interval history: 62-year-old male who is seen examined today for the lung mass. Patient resting comfortably. Denies any new complaints. Awaiting radiology to perform CT-guided biopsy. Vital signs are stable. Patient remains afebrile. Physical Exam Vital signs: Vital Signs 04/25/18 12:00 04/25/18 16:00 04/25/18 20:00 Temperature 96.8 F L 97.2 F L 95.7 F L Pulse Rate 62 60 62 Respiratory Rate 16 16 20 Blood Pressure 115/72 108/71 97/60 L Pulse Oximetry 97 98 95 04/25/18 20:05 04/25/18 21:05 04/26/18 00:00 Temperature 96.3 F L Pulse Rate 61 62 60 Respiratory Rate 18 20 Blood Pressure 108/64 Pulse Oximetry 100 97 04/26/18 04:00 04/26/18 10:28 Temperature 97.2 F L Pulse Rate 61 61 Respiratory Rate 20 19 Blood Pressure 98/58 L Pulse Oximetry 95 97 Intake & Output 04/25/18 04/26/18 04/26/18 18:59 06:59 18:59 Intake Total 1000 / 1000 480 / 480 Balance 1000 / 1000 480 / 480 Weight 68.4 kg Intake: IV 1000 / 1000 NS Inj 1,000 ML @ 75 mls/hr IV. 1000 / 1000 CONT .[id number] JEANINE Rx#: [id number] Oral 480 / 480 Other: # Voids 3 4 Narrative: GENERAL: Well-developed, malnourished, in no acute distress. alert and orientated CARDIAC: Regular rhythm, regular rate. S1/S2 are heard. No murmurs gallops or rubs. LUNGS: Clear to auscultation bilaterally. No wheeze, rhonchi or rales. No use of accessory muscles on inspiration or expiration. Results Labs CBC & Chem 7: 04/24/18 08:35 04/24/18 08:35 Imaging Imaging: Impressions Myocardial Perfusion Scan Nuc Med 04/25/18 06:00 CONCLUSION: 1. No evidence of stress-induced ischemia. Stable appearance to apical thinning when compared to 2015. 2. Intact wall motion with 53% ejection fraction. Assessment and Plan (1) Chest pain: Code(s): R07.9 - Chest pain, unspecified Status: Acute Plan Abnormal CT scan indicating new masslike area in the left lower lung Awaiting CT-guided aspiration/biopsy Pulmonology consulted for further recommendations and recommends the patient undergo CT-guided biopsy Currently unable to arrange outpatient procedures secondary to no appropriate follow-up. Patient has go to the [place] but has not been there in a year. Unable to make follow-up appointment at this time due to being weekend. Monitor Worker does not have a outpatient office for the patient to follow-up with in order to review the results of the biopsy if done outpatient. Chest pain, atypical, resolved Patient with increased risk factors to include tobacco use Patient has been ruled out for acute coronary event with serial cardiac enzymes which have remained negative Serial EKGs reviewed by myself which shows an atrial paced rhythm Myocardial perfusion study was performed and indicated normal examination, no signs of ischemia. Low risk Holding aspirin, so the patient can undergo procedure Oxygen as needed DVT prevention Subcutaneous heparin Discussed Condition With: Patient, nursing staff, Dr. [place] Discharge Planning: Currently discharge planning is after biopsy performed. Will need to consult case management to try to arrange appropriate outpatient follow-up, if that can be arranged then we can anticipate discharging patient home and he can have the procedure done as outpatient. Progress Note: Quality VTE Deep Vein Thrombosis/Pulmonary Embolism Present on Admission: No
--- NOTE | 2018-04-26 13:58 | P.PNPL ---
Subjective Interval history: Patient is lying in bed in NAD. On room air oxygen. Physical Exam Vital signs: Vital Signs 04/25/18 16:00 04/25/18 20:00 04/25/18 20:05 Temperature 97.2 F L 95.7 F L Pulse Rate 60 62 61 Respiratory Rate 16 20 Blood Pressure 108/71 97/60 L Pulse Oximetry 98 95 04/25/18 21:05 04/26/18 00:00 04/26/18 04:00 Temperature 96.3 F L 97.2 F L Pulse Rate 62 60 61 Respiratory Rate 18 20 20 Blood Pressure 108/64 98/58 L Pulse Oximetry 100 97 95 04/26/18 10:28 Temperature Pulse Rate 61 Respiratory Rate 19 Blood Pressure Pulse Oximetry 97 Intake & Output 04/25/18 04/26/18 04/26/18 18:59 06:59 18:59 Intake Total 1000 / 1000 480 / 480 Balance 1000 / 1000 480 / 480 Weight 68.4 kg Intake: IV 1000 / 1000 NS Inj 1,000 ML @ 75 mls/hr IV. 1000 / 1000 CONT .[id number] JEANINE Rx#: [id number] Oral 480 / 480 Other: # Voids 3 4 - Constitutional no acute distress, thin - Routine HEENT Exam Head: Present: normocephalic, atraumatic Eye: Present: EOMI, PERRL, normal accommodation, conjunctivae pink ENT: Present: mucous membranes moist - Routine Neck Exam Present: supple, full ROM, trachea midline - Routine Respiratory Exam Present: CTA bilaterally - Routine Cardiovascular Exam Present: RRR, S1, S2 - Routine Abdominal Exam Present: soft, normoactive bowel sounds - Routine Skin Exam Present: intact, dry - Routine Neurological Exam Present: alert, oriented X3, CN II-XII intact Assessment and Plan - Assessment (1) Chest pain Code(s): R07.9 - Chest pain, unspecified Status: Acute - Plan 1. Lung mass - 3 cm mass-like opacity left base r/o malignancy 2. COPD 3. Active tobacco use. 4. Atypical chest pain. Plan Oxygen PRN keep sats >92% Bronchodilators- DuoNeb, Symbicort Check PFT to assess the severity of his obstructive lung disease. Levaquin 500 mg daily p.o. for 7 days. Check sputum cx Awaiting CT guided lung biopsy r/o bronchogenic ca Myocardial perfusion study showed no evidence of any ischemia. Continue treatment plan.
[2018-04-27] MEDS: Sod Chloride 0.9% Inj 1,000 ML IV.CONT SCH ×2 (06:06→20:40)
--- NOTE | 2018-04-27 08:02 | P.PNIM ---
Subjective Interval history: 62-year-old male who is seen examined today for follow-up on chest pain, lung mass. No change in clinical status. Awaiting CT- guided biopsy prior to discharge. Vital signs are stable. Patient remains afebrile. Physical Exam Vital signs: Vital Signs 04/26/18 10:28 04/26/18 12:00 04/26/18 15:09 Temperature 96.9 F L Pulse Rate 61 64 62 Respiratory Rate 19 20 18 Blood Pressure 101/64 Pulse Oximetry 97 95 04/26/18 16:00 04/26/18 19:28 04/26/18 19:29 Temperature 95.6 F L Pulse Rate 59 L 60 Respiratory Rate 20 20 Blood Pressure 107/73 Pulse Oximetry 98 97 04/26/18 20:00 04/27/18 00:00 04/27/18 07:04 Temperature 97.1 F L 97.3 F L Pulse Rate 63 60 68 Respiratory Rate 18 18 16 Blood Pressure 98/60 L 100/58 L Pulse Oximetry 97 99 98 Intake & Output 04/26/18 04/27/18 04/27/18 18:59 06:59 18:59 Intake Total 800 / 800 Balance 800 / 800 Weight 68.6 kg Intake: Oral 800 / 800 Other: # Voids 4 3 Date of Last Bowel Movement 04/24/18 # Bowel Movements 0 Narrative: GENERAL: Well-developed, malnourished, in no acute distress. alert and orientated CARDIAC: Regular rhythm, regular rate. S1/S2 are heard. No murmurs gallops or rubs. LUNGS: Clear to auscultation bilaterally. No wheeze, rhonchi or rales. No use of accessory muscles on inspiration or expiration. Results Labs CBC & Chem 7: 04/24/18 08:35 04/24/18 08:35 Assessment and Plan (1) Chest pain: Code(s): R07.9 - Chest pain, unspecified Status: Acute Plan Abnormal CT scan indicating new masslike area in the left lower lung Awaiting CT-guided aspiration/biopsy Pulmonology consulted for further recommendations and recommends the patient undergo CT-guided biopsy prior to discharge Currently unable to arrange outpatient procedures secondary to no appropriate follow-up. Patient has go to the [place] but has not been there in a year. Unable to make follow-up appointment at this time due to being weekend. Spring Intern does not have a outpatient office for the patient to follow-up with in order to review the results of the biopsy if done outpatient. Chest pain, atypical, resolved Patient with increased risk factors to include tobacco use Patient has been ruled out for acute coronary event with serial cardiac enzymes which have remained negative Serial EKGs reviewed by myself which shows an atrial paced rhythm Myocardial perfusion study was performed and indicated normal examination, no signs of ischemia. Low risk Holding aspirin, so the patient can undergo procedure Oxygen as needed DVT prevention Subcutaneous heparin Discharge Planning: Currently discharge planning is after biopsy performed. Consulted case management to try to arrange appropriate outpatient follow-up, Progress Note: Quality VTE Deep Vein Thrombosis/Pulmonary Embolism Present on Admission: No _ (1) Chest pain Qualifiers: Chest pain type: Ischemic chest pain type:
[2018-04-27] MEDS: levoFLOXacin 500 MG Tablet PO SCH (09:43)
[2018-04-27] MEDS: Heparin - SQ 10,000 UNITS/ML Vial SQ SCH ×2 (09:45→20:39)
[2018-04-27] MEDS: Budesonide-Formoterol 160/4.5 MCG 6 GM Inhaler INH SCH ×2 (09:47→20:39)
[2018-04-27 18:03] LABS: Activated Partial Thrombo Time 26.6 sec (23.4-31.7); Prothrombin Time 10.4 sec (9.8-11.6)
[2018-04-28] MEDS: Sod Chloride 0.9% Inj 1,000 ML IV.CONT SCH ×2 (08:38→22:31)
[2018-04-28] MEDS: Heparin - SQ 10,000 UNITS/ML Vial SQ SCH ×2 (08:39→21:11)
[2018-04-28] MEDS: Budesonide-Formoterol 160/4.5 MCG 6 GM Inhaler INH SCH ×2 (08:41→21:11)
[2018-04-28] MEDS: levoFLOXacin 500 MG Tablet PO SCH (08:41)
--- NOTE | 2018-04-28 10:04 | P.PNIM ---
Subjective Interval history: 62-year-old male seen today for follow-up on abnormal CT results with lung mass. Patient resting comfortably. Still awaiting biopsy/aspiration to be performed. Nursing staff indicating that CT notified her that it would not be done until tomorrow. Vital signs are stable. Patient remains afebrile. Physical Exam Vital signs: Vital Signs 04/27/18 12:00 04/27/18 14:02 04/27/18 16:00 Temperature 96.3 F L 96.5 F L Pulse Rate 62 63 65 Respiratory Rate 20 14 20 Blood Pressure 112/59 L 108/61 Pulse Oximetry 97 97 04/27/18 19:18 04/27/18 20:00 04/28/18 00:00 Temperature 96.5 F L 97.4 F L Pulse Rate 59 L 64 62 Respiratory Rate 18 18 18 Blood Pressure 100/58 L 97/56 L Pulse Oximetry 96 96 97 04/28/18 07:28 04/28/18 08:00 Temperature 97.1 F L Pulse Rate 69 88 Respiratory Rate 17 18 Blood Pressure 104/61 Pulse Oximetry 98 100 Intake & Output 04/27/18 04/28/18 04/28/18 18:59 06:59 18:59 Intake Total 622 / 622 480 / 480 Output Total 350 / 350 Balance 622 / 622 130 / 130 Weight 68.6 kg Intake: Oral 622 / 622 Oral Supplement 480 / 480 Output: Urine 350 / 350 Other: # Voids 2 Date of Last Bowel Movement 04/25/18 04/25/18 Narrative: GENERAL: Well-developed, malnourished, in no acute distress. alert and orientated CARDIAC: Regular rhythm, regular rate. S1/S2 are heard. No murmurs gallops or rubs. LUNGS: Clear to auscultation bilaterally. No wheeze, rhonchi or rales. No use of accessory muscles on inspiration or expiration. Results Labs CBC & Chem 7: 04/24/18 08:35 04/24/18 08:35 Assessment and Plan (1) Chest pain: Code(s): R07.9 - Chest pain, unspecified Status: Acute Plan Abnormal CT scan indicating new masslike area in the left lower lung, indeterminate if this is a mass, cancer, fluid, abscess, empyema, infarction We will not know exactly what the etiology is until aspiration/biopsy can be performed Awaiting CT-guided aspiration/biopsy, was notified will be done tomorrow Pulmonology consulted for further recommendations and recommends the patient undergo CT-guided biopsy prior to discharge Discussed with Dr. Mancini, pulmonology, that another conductor/engineer should be following up today. Could possibly make outpatient appointment with that physician for outpatient follow-up. - Aspirin use is requiring 5 days off aspirin before biopsy. Chest pain, atypical, resolved Patient with increased risk factors to include tobacco use Patient has been ruled out for acute coronary event with serial cardiac enzymes which have remained negative Serial EKGs reviewed by myself which shows an atrial paced rhythm Myocardial perfusion study was performed and indicated normal examination, no signs of ischemia. Low risk Holding aspirin, so the patient can undergo procedure Oxygen as needed DVT prevention Subcutaneous heparin, held for procedure today Discharge Planning: Currently discharge planning is after biopsy performed. Consulted case management to try to arrange appropriate outpatient follow-up, Progress Note: Quality VTE Deep Vein Thrombosis/Pulmonary Embolism Present on Admission: No _ (1) Chest pain Qualifiers: Chest pain type: Ischemic chest pain type:
--- NOTE | 2018-04-28 18:00 | P.PN ---
Subjective Interval history: ALERT NAD Physical Exam Vital signs: Vital Signs 04/27/18 19:18 04/27/18 20:00 04/28/18 00:00 Temperature 96.5 F L 97.4 F L Pulse Rate 59 L 64 62 Respiratory Rate 18 18 18 Blood Pressure 100/58 L 97/56 L Pulse Oximetry 96 96 97 04/28/18 07:28 04/28/18 08:00 04/28/18 11:47 Temperature 97.1 F L 96.9 F L Pulse Rate 69 88 63 Respiratory Rate 17 18 18 Blood Pressure 104/61 108/62 Pulse Oximetry 98 100 100 04/28/18 13:33 04/28/18 16:00 Temperature 97.6 F Pulse Rate 72 62 Respiratory Rate 17 18 Blood Pressure 110/62 Pulse Oximetry 100 Intake & Output 04/27/18 04/28/18 04/28/18 18:59 06:59 18:59 Intake Total 622 / 622 480 / 480 Output Total 350 / 350 Balance 622 / 622 130 / 130 Weight 68.6 kg Intake: Oral 622 / 622 Oral Supplement 480 / 480 Output: Urine 350 / 350 Other: # Voids 2 Date of Last Bowel Movement 04/25/18 04/25/18 - Constitutional no acute distress - Routine HEENT Exam Head: Present: normocephalic Eye: Present: EOMI, PERRL ENT: Present: mucous membranes moist - Routine Neck Exam Present: supple - Routine Respiratory Exam Present: CTA bilaterally - Routine Cardiovascular Exam Present: RRR, S1, S2 - Routine Abdominal Exam Present: soft - Routine Neurological Exam Present: alert, oriented X3 Results - Labs CBC & Chem 7: 04/24/18 08:35 04/24/18 08:35 Laboratory Results - last 24 hr 04/27/18 17:37 PT 10.4 INR 1.0 APTT 26.6 Assessment and Plan - Plan LUNG MASS COPD PLAN BRONCHODILATORS BIOPSY AM
[2018-04-29 07:20] VITALS: BP 103/68; PULSE 61; RESP 15; TEMP 97.6; O2SAT 97
[2018-04-29] MEDS ORDERED: fentaNYL Citrate Inj 100 MCG/2 ML Ampul IV.PUSH ONE (09:00)
--- NOTE | 2018-04-29 09:52 | P.RAD ---
Post Procedure Progress Note - Pre Procedure Diagnosis (1) Chest pain - Post Procedure Diagnosis (1) Chest pain - Procedure Information Procedure Date: 04/29/18 Supervising Radiologist: Leo Valenzuela MD Anesthesia: Conscious Sedation - Plan of Activity Patient to Unit: Nursing Unit Patient Condition: Good See PACS Report for procedural detail/treatment. Biopsy CT left Lung Specimen: Core Biopsy
--- NOTE | 2018-04-29 09:55 | CT ---
EXAM DATE: 04/29/2018 9:31 AM EST AGE/SEX: 62 years / Male INDICATIONS: Left lung biopsy. CLINICAL DATA: This is the patient's initial encounter. Patient reports that signs and symptoms have been present for 1 day and indicates a pain score of 0/10. MEDICAL/SURGICAL HISTORY: Cardiovascular disease. Chronic obstructive pulmonary disease. Hype rtension. Pacemaker. COMPARISON: . SEDATION TIME (min): 30 BIOPSY SITE: Left lung MEDICATION(S): 2mg midazolam (Versed) IV 100mcg fentanyl (Sublimaze) IV DEVICE(S): 20 gauge Temno core biopsy needle 19 gauge Introducer Three . . PROCEDURE: CT guided Left lung biopsy Prior to the procedure informed consent was obtained. Any appropriate prior imaging studies were rev iewed. Using automated exposure control and adjustment of the mA and/or kV according to patient size , radiation dose was kept as low as reasonably achievable to obtain optimal diagnostic quality images . DICOM format image data is available electronically for review and comparison. The site was prepped in a sterile fashion. Full sterile technique was used, including cap, mask, zahira rile gloves and gown and a large sterile sheet. Hand hygiene and 2% chlorhexidine and/or betadine/al cohol prep was utilized per protocol for cutaneous antisepsis. The skin and subcutaneous tissues wer e infiltrated with local anesthetic solution. With CT guidance the previously identified target was localized. Biopsy was performed using the presc ribed needle as above. Adequate hemostasis was obtained with compression at the puncture site. Follow-up CT scan reveals no pneumothorax. Conscious sedation was performed with the prescribed dosages and duration as above in the presence of an independent trained radiology nurse to assist in the monitoring of the patient. EKG and oximetry remained stable throughout the procedure. The patient tolerated the procedure well and there were no complications. The patient was sent to Radiology Outpatient Unit in stable condition. FINDINGS: CONCLUSION: 1. Uncomplicated CT guided biopsy. Electronically signed by: Leo Valenzuela MD Board Certified Radiologist 04/29/2018 9:54 AM EST
[2018-04-29] MEDS ORDERED: Lidocaine 1%/Epinephrine 1:100,000 Inj 20 ML Vial INFILTRATN ONE (10:00)
--- NOTE | 2018-04-29 10:34 | XR ---
EXAM DATE: 04/29/2018 10:28 AM EST AGE/SEX: 62 years / Male INDICATIONS: Status post left side lung biopsy. CLINICAL DATA: This is the patient's initial encounter. Patient reports that signs and symptoms have been present for 1 day and indicates a pain score of 3/10. MEDICAL/SURGICAL HISTORY: . Cardiovascular disease. Chronic obstructive pulmonary disease. Hype rtension. Pacemaker. COMPARISON: [facility], CTA PULMONARY W CONTRAST W 3D, 04/24/2018. [facility], CHEST 2V PA&LAT, 04/24/2018. . FINDINGS: Trace left base atelectasis. No infiltrate, effusion or pneumothorax. Heart size stable, within adalgisa l limits. Cardiac pacer again noted. CONCLUSION: 1. No pneumothorax. 2. Trace left base atelectasis. Electronically signed by: Matthew Fernandes MD Board Certified Radiologist 04/29/2018 10:32 AM EST
[2018-04-29] MEDS: Heparin - SQ 10,000 UNITS/ML Vial SQ SCH (10:43)
[2018-04-29] MEDS: levoFLOXacin 500 MG Tablet PO SCH (10:43)
[2018-04-29] MEDS: Budesonide-Formoterol 160/4.5 MCG 6 GM Inhaler INH SCH (10:44)
--- NOTE | 2018-04-29 10:57 | P.PNIM ---
Subjective Interval history: Interval history: 62-year-old male seen today for follow-up on abnormal CT results with lung mass. Physical Exam Vital signs: Vital Signs 04/28/18 11:47 04/28/18 13:33 04/28/18 16:00 Temperature 96.9 F L 97.6 F Pulse Rate 63 72 62 Respiratory Rate 18 17 18 Blood Pressure 108/62 110/62 Pulse Oximetry 100 100 04/28/18 20:00 04/28/18 20:31 04/29/18 00:00 Temperature 96.7 F L 97.2 F L Pulse Rate 67 63 74 Respiratory Rate 18 18 18 Blood Pressure 105/62 100/59 L Pulse Oximetry 95 96 04/29/18 07:19 Temperature 97.6 F Pulse Rate 61 Respiratory Rate 15 Blood Pressure 103/68 Pulse Oximetry 97 Intake & Output 04/28/18 04/29/18 04/29/18 18:59 06:59 18:59 Intake Total 480 / 480 Balance 480 / 480 Weight 62.6 kg Intake: Oral 480 / 480 Other: # Voids 3 2 # Bowel Movements 0 Narrative: GENERAL: Well-developed, malnourished, in no acute distress. alert and orientated CARDIAC: Regular rhythm, regular rate. S1/S2 are heard. No murmurs gallops or rubs. LUNGS: Clear to auscultation bilaterally. No wheeze, rhonchi or rales. No use of accessory muscles on inspiration or expiration. Results Labs CBC & Chem 7: 04/24/18 08:35 04/24/18 08:35 Imaging Imaging: Impressions Lung Biopsy CT 04/29/18 08:00 CONCLUSION: 1. Uncomplicated CT guided biopsy. Chest X-Ray 04/29/18 09:51 CONCLUSION: 1. No pneumothorax. 2. Trace left base atelectasis. Assessment and Plan (1) Chest pain: Code(s): R07.9 - Chest pain, unspecified Status: Acute Plan Abnormal CT scan indicating new masslike area in the left lower lung, indeterminate if this is a mass, cancer, fluid, abscess, empyema, infarction Etiology unknown until aspiration/biopsy resulted. Underwent CT guided bx this am with radiology. Pulmonology consulted, appreciate input and recommendations. Underwent CT guided bx as ordered. Chest pain, atypical, resolved Patient with increased risk factors to include tobacco use. Patient has been ruled out for acute coronary event with serial cardiac enzymes which have remained negative. Serial EKGs reviewed by myself which shows an atrial paced rhythm. Myocardial perfusion study was performed and indicated normal examination, no signs of ischemia. Low risk Holding aspirin, for CT bx. Has been done, will resume. Oxygen as needed. On RA. DVT prevention Subcutaneous heparin, held for procedure today. Discharge Planning: Consulted case management to try to arrange appropriate outpatient follow-up. Progress Note: Quality VTE Deep Vein Thrombosis/Pulmonary Embolism Present on Admission: No _ (1) Chest pain Qualifiers: Chest pain type: Ischemic chest pain type:
--- NOTE | 2018-04-29 11:13 | P.DS ---
DS: Providers Date of admission: 04/24/18 10:13 Primary care physician: No Primary Care Physician Consults: 04/25/18 12:14 Consult to Pulmonology Routine Consulting Provider: Pablo Man Reason for Consultation: Left lung mass Notified:: Service Spoke with:: Trice Date Notified:: 04/25/18 Time Notified:: 12:18 Brief History from admission: 62-year-old male with known history of symptomatic bradycardia requiring atrial pacemaker who presented to hospital for chest pain. Patient indicates that he is in his normal state of health until last night at approximately 5 PM when he started developing some chest pain in the middle part of his chest which was a 3/10 on pain scale. He fell asleep and when he woke up the pain was still there and started radiating down his right arm. He denied any nausea, vomiting, diaphoresis, shortness of breath , dyspnea, lightheadedness, dizziness. Patient came to emergency department because he still had a persistent pain. Patient had workup and was unremarkable. It is recommended by the ER physician the patient be observed and chest pain center for further evaluation and management. Patient states that last time he had any cardiac workup was in a couple years ago. At the time of evaluating patient he is asymptomatic. States that he had coffee this morning prior to coming to the hospital. DS: Diagnosis Discharge Diagnosis (1) Chest pain: Status: Acute DS: Summary This is a 62-year-old male patient who presented with findings of abnormal CT scan indicating new masslike area in the left lower lung, indeterminate if this is a mass, cancer, fluid, abscess, empyema, infarction. Etiology unknown until aspiration/biopsy resulted. Underwent CT guided bx on 04/29/18 with radiology. Pulmonology consulted, appreciate input and recommendations. Underwent CT guided bx as ordered. He also had some chest pain that was atypical and resolved. Had increased risk factors for CAD including tobacco abuse. Patient ruled out for ACS with serial EKGs and serial troponins. EKG did show atrial paced rhythm. Myocardial perfusion study was performed and indicate normal exam. No signs of ischemia. Patient was stable on day of discharge. Will follow up with PCP and pulmonology. Rx is written. Diet as tolerated. Activity as tolerated. Patient is stable on day of discharge. All questions answered. Case management to assist with anything needed for follow-up. Time Spent with Patient Total time spent providing and/or coordinating discharge services: Greater than 30 minutes Quality: VTE Deep Vein Thrombosis/Pulmonary Embolism Present on Admission: No Exam Narrative Exam Narrative: Narrative: GENERAL: Well-developed, malnourished, in no acute distress. alert and orientated CARDIAC: Regular rhythm, regular rate. S1/S2 are heard. No murmurs gallops or rubs. LUNGS: Clear to auscultation bilaterally. No wheeze, rhonchi or rales. No use of accessory muscles on inspiration or expiration. Results Impressions ITS Impressions Chest CTA 04/24/18 09:41 CONCLUSION: 1. The study is negative for pulmonary embolism. 2. 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 3. There is a new greater than 3 cm masslike opacity in left costophrenic angle devoid of air bronchograms. This is a new finding from prior CT pulmonary angiogram January 2017. Differential considerations include malignancy, infiltrate, and infarction. Myocardial Perfusion Scan Nuc Med 04/25/18 06:00 CONCLUSION: 1. No evidence of stress-induced ischemia. Stable appearance to apical thinning when compared to 2015. 2. Intact wall motion with 53% ejection fraction. Lung Biopsy CT 04/29/18 08:00 CONCLUSION: 1. Uncomplicated CT guided biopsy. Chest X-Ray 04/29/18 09:51 CONCLUSION: 1. No pneumothorax. 2. Trace left base atelectasis. Discharge Plan Discharge Disposition Patient Disposition: 01 Discharge Home Discharge Order Discharge Orders: Discharge Order (Routine); Ordered 04/29/18 Ordered By: Nicole Means Discharge Details Anticipated Discharge Date: 04/29/18 Physicians Team ED Provider: Alexander Roman Primary Care Provider: Anel Ricci Attending Provider: Delroy Perez Other Providers: Pablo Man Rxs /Orders / Referrals /Forms Prescriptions: New budesonide-formoterol [Symbicort] 160-4.5 mcg/actuation Hfa Aerosol Inhaler 2 puff INH BID Qty: 1 RF: 0 Continue No Known Home Medications RF: 0 Referrals: [facility] [Family Provider] - See Instructions ( Please call the physician's office to book YOUR F/U APT, CALL [phone], AFTER DISCHARGE AT YOUR CONVENIENCE) Primary Care Anel Alvarado [Primary Care Provider] - See Instructions (PT TO SEE PCP AT [facility] ) Portillo Nath MD [Physician] - 05/06/18 12:00 am ( Your appointment has been scheduled for [05/16/18] at [12:30PM] [facility] If you cannot make this appointment, please call the office to reschedule ) Discharge Instructions Patient Printed Instructions: Budesonide/Formoterol (By breathing), Chest Pain (ED), Fine Needle Aspiration Biopsy (GEN) Post Discharge Care Plan Care Plan Goals: Your Health Problems: Lung Mass Goals to Promote Your Health: * To prevent worsening of your condition * To maintain your health at the optimal level Directions to Meet Your Goals: * Take your medications as prescribed * Follow your dietary instruction * Follow activity as directed * Keep your appointments as scheduled * Take your immunizations and boosters as scheduled * If your symptoms worsen call your PCP * If no PCP go to Urgent Care or Emergency Room Smoking is dangerous to your health. Avoid second hand smoke. You may reach the 24-hour crisis hotline for domestic abuse at . Status ED Status: Left Department Discharge Information Discharge Date/Time: 04/29/18 13:49
== END 2018-04-29 13:49 | disposition home or self-care (01) ==
LOC: PHED 08:15 → PHEDA 08:15 → PH3 10:56
PROVIDERS: ADMIT Hospitalist; ATTEND Hospitalist
CPT/HCPCS: 32405; 71010; 71020; 71045; 71046; 71275; 76360; 77012; 78452; 80053; 82550; 83690; 84484; 85025; 85379; 85610; 85730; 88305; 93005; 93017; 94060; 94640; 94665; 96365; 96366; 99145; 99152; 99153; 99285; A9502; G0378; J1644; J1956; J2250; J2785; J3010; J7030; Q9967; Q9969